=== PATIENT | male | born 1945 | race Caucasian/White ===

== ENCOUNTER → 2016-10-14 13:41 | Outpatient (CLI) | payer MEDICARE, BC ==
[2015-03-27 08:04] VITALS: BMI 28.4
[~2016-10-14 13:41] MED LIST: AMANTADINE100 M1 PO; AZILECT1 MG PO; BACTRIM DS TABL1 TAB PO; BAYER CHEWABLE81 MG PO; BCOMPLEX PO; CARBIDOPA-LEVO1 EAC2 PO; CELEBREX200 MG PO; CIPRO500 MG PO; CORDYCEPS PO; DEXILANT60 MG PO; LIVALO2 MG PO; MELATONIN 3 MG1 TAB PO; PROTONIX40 MG PO; TESTOSTERON200 MG/ML IM; UROXATRAL10 MG PO; VITAMIN D2000 UNIT PO; ZINC PICOLINATE PO
== END | disposition home or self-care (01) ==
LOC: D.RT 13:41
DX: R06.02 Shortness of breath (principal)

== ENCOUNTER 2017-10-31 17:17 | Emergency (ER) | payer MEDICARE, BC ==
[2015-03-27 08:04] VITALS: BMI 28.4
== END 2017-10-31 20:19 | disposition home or self-care (01) ==
LOC: D.ER 17:17
DX: S01.81XA Laceration without foreign body of other part of head, initial encounter (principal); W26.9XXA Contact with unspecified sharp object(s), initial encounter; Y93.89 Activity, other specified; Y92.019 Unspecified place in single-family (private) house as the place of occurrence of the external cause

== ENCOUNTER 2018-06-25 07:00 | Day surgery (SDC) | payer MEDICARE, BC ==
[2018-06-22 09:27] LABS: HEMATOCRIT 40.7 % (42.0-54.0); HEMOGLOBIN 13.8 g/dL (13.5-17.5); MCH 32.4 pg (26.0-34.0); MCHC 33.9 g/dL (31.0-37.0); MCV 95.5 fL (80.0-100.0); MEAN PLATELET VOLUME 9.7 fL (7.4-10.4); RBC 4.26 10x6/uL (4.20-6.10); RDW 14.6 % (11.5-14.5)
[~2018-06-25] VITALS: Ht 185.4 cm; Wt 86.2 kg
--- NOTE | ~2018-06-25 | OP ---
PATIENT NAME: JUAN CHOUDHURY MEDICAL RECORD: [id number] :49 LOCATION:D.OPS ADMISSION DATE: SURGEON: AGUSTÍN SMITH MD DATE OF OPERATION: 06/25/2018 PREOPERATIVE DIAGNOSIS: Right triceps tendon rupture, chronic. POSTOPERATIVE DIAGNOSIS: Right triceps tendon rupture, chronic. PROCEDURE: Repair of right triceps tendon rupture. SURGEON: Agustín Smith MD TERMINAL OPERATIONS MANAGER: Nikhil Davidson APN INTRAOPERATIVE COMPLICATIONS: None. SUMMARY OF PATHOLOGIC FINDINGS: The patient did have a triceps tendon rupture; however, it was very amenable to reapproximation and had not retracted substantially. OPERATIVE SUMMARY IN DETAIL: After obtaining the appropriate preoperative orthopedic surgery consent as well as anesthetic consultation, the patient was brought to the operating room, placed on the operating table in supine position. After general laryngeal mask airway was administered, tourniquet was placed on the proximal aspect of the right upper extremity. Right upper extremity was then prepped and draped in routine sterile fashion. The arm was elevated and exsanguinated, tourniquet inflated to 250 mmHg. Routine mid linear incision was taken down and careful dissection was carried down to the triceps itself. It was identified, good healing tissue was noted; however, it had not reapproximated back to the olecranon fossa. For this reason, it was identified in its entirety. The triceps insertion was then taken with a small sagittal saw back to bleeding bone. At this point, using 29 PushLocks and suture tape, a double-row construct was created out of these Arthrex suture anchors. This resulted in excellent reapproximation of the triceps back to the olecranon around the tip. Having completed this, the wound was then copiously irrigated, closed in layered form with final closure using 4-0 Prolene. Sterile dressings were applied. The tourniquet was deflated. The patient was awakened, taken to the recovery in stable condition. All final needle and sponge counts were correct. TRANSINT:[id number] Voice Confirmation ID: [id number] DOCUMENT ID: [id number] OPERATIVE REPORT [id number] CHOUDHURYJUAN Simon MD, AGUSTÍN PENNINGTON CC: [id number] DICTATION DATE: 06/28/18 152 GOVERNOR ASSEMBLER HYDRAULIC: 06/28/182242 [facility] 06/25/18 [place] [address] [place] [address]
[~2018-06-25 07:00] MED LIST changes: +BACTRIM DS1 TAB PO; +CALCIUM 600 +1 EAC3 PO; +MIRAPEX1.5 MG PO; +OMEGA-3100 MG PO; +PROSCAR5 MG PO; +RAPAFLO8 MG PO; +[UNRECOGNIZED DRUG - OTHER] PO
[2018-06-25 07:49] VITALS: BP 140/77; Ht 185.4 cm; Wt 86.2 kg
[2018-06-25] MEDS ORDERED: NORCO 10-325 TA1 TAB PO (10:01)
== END 2018-06-25 12:09 | disposition home or self-care (01) ==
LOC: D.OPS 07:00 → D.PAN 09:00 → D.OPS 09:15 → D.PAN 09:30 → D.OPS 09:30
PROVIDERS: Anesthesiology
DX: S46.311A Strain of muscle, fascia and tendon of triceps, right arm, initial encounter (principal); X58.XXXA Exposure to other specified factors, initial encounter; Z01.812 Encounter for preprocedural laboratory examination

== ENCOUNTER 2019-09-21 15:03 | Emergency (ER) | payer MEDICARE, BC ==
[~2019-09-21] VITALS: Ht 185.4 cm; Wt 94.5 kg
[~2019-09-21 15:03] MED LIST changes: +NORCO 10-325 TA1 TAB PO
[2019-09-21 15:08] VITALS: Ht 185.4 cm; Wt 94.5 kg
[2019-09-21 15:58] LABS: BASOPHILS 0.6 % (0-2); EOSINOPHILS 2.9 % (0-7); HEMATOCRIT 42.1 % (42.0-54.0); HEMOGLOBIN 13.7 g/dL (13.5-17.5); IMMATURE GRANULOCYTES 0.4 % (0-5); LYMPHOCYTES 16.7 % (15-50); MCH 32.6 pg (26.0-34.0); MCHC 32.5 g/dL (31.0-37.0); MCV 100.2 fL (80.0-100.0); MEAN PLATELET VOLUME 9.4 fL (7.4-10.4); MONOCYTES 8.2 % (2-11); NEUTROPHILS 71.2 % (40-80); PLATELET COUNT 182 10x3/uL (130-400); RDW 14.6 % (11.5-14.5); WBC 4.9 10x3/uL (4.8-10.8)
[2019-09-21 16:09] LABS: APTT 25.6 SECONDS (22.8-39.4); CALC OSMOLALITY 292 mosm/kg (275-300); CALCIUM 8.9 mg/dL (8.5-10.1); CARBON DIOXIDE 25.5 mmol/L (21.0-32.0); CHLORIDE - SERUM 106 mmol/L (98-107); CREATININE - SERUM 1.6 mg/dL (0.6-1.3); GLUCOSE 107 mg/dL (74-106); INR 1.01 (0.85-1.17); PROTIME 13.3 SECONDS (11.6-15.0); SODIUM 144 mmol/L (136-145); UREA NITROGEN 29 mg/dL (7-18); eGFR NON AFRICAN AMERICAN 45 mL/min (90-120)
[2019-09-21 16:24] LABS: ALBUMIN 3.8 g/dL (3.4-5.0); ALKALINE PHOSPHATASE 73 U/L (30-120); ALT (SGPT) 13 U/L (10-68); CKMB 7.6 U/L (0.0-3.6); CREATINE KINASE 228 UL (21-232); MAGNESIUM - SERUM 2.4 mg/dL (1.8-2.4)
[2019-09-21 16:26] LABS: TROPONIN-I < 0.017 ng/mL (0.000-0.060)
[2019-09-21 17:31] VITALS: BP 128/60
== END 2019-09-21 17:32 | disposition home or self-care (01) ==
LOC: D.ER 15:03
PROVIDERS: Emergency Medicine
DX: R06.02 Shortness of breath (principal); R07.9 Chest pain, unspecified; R06.00 Dyspnea, unspecified; Z95.5 Presence of coronary angioplasty implant and graft

== ENCOUNTER 2019-10-06 13:59 | Emergency (ER) | payer MEDICARE, BC ==
[~2019-10-06] VITALS: Ht 185.4 cm; Wt 91.4 kg
[2019-10-06 14:02] VITALS: BP 178/77; Ht 185.4 cm; Wt 91.4 kg
== END 2019-10-06 15:41 | disposition home or self-care (01) ==
LOC: D.ER 13:59
DX: S69.92XA Unspecified injury of left wrist, hand and finger(s), initial encounter (principal); W19.XXXA Unspecified fall, initial encounter; Y93.9 Activity, unspecified; Y92.9 Unspecified place or not applicable; G20 Parkinson's disease; K21.9 Gastro-esophageal reflux disease without esophagitis

== ENCOUNTER → 2019-10-11 09:18 | Outpatient (CLI) | payer MEDICARE, BC ==
[2019-10-06 14:02] VITALS: BMI 26.5
== END | disposition home or self-care (01) ==
LOC: D.RT 10-07 13:00
PROVIDERS: ATTEND Family Medicine
DX: R06.09 Other forms of dyspnea (principal)

== ENCOUNTER → 2019-11-06 09:34 | Outpatient (CLI) | payer MEDICARE, BC ==
[2019-10-06 14:02] VITALS: BMI 26.5
== END | disposition home or self-care (01) ==
LOC: D.HCCECHO 09:30
PROVIDERS: ATTEND Internal Medicine Cardiovascular Disease
DX: I25.10 Atherosclerotic heart disease of native coronary artery without angina pectoris (principal)

== ENCOUNTER 2019-12-08 17:29 | Emergency (ER) | payer MEDICARE, BC ==
[2019-12-08 17:43] VITALS: Ht 185.4 cm
[2019-12-08] MEDS ORDERED: KEFLEX500 MG PO (19:39)
[2019-12-08 20:05] VITALS: BP 132/78
== END 2019-12-08 20:05 | disposition home or self-care (01) ==
LOC: D.ER 17:29
DX: S01.21XA Laceration without foreign body of nose, initial encounter (principal); S02.2XXA Fracture of nasal bones, initial encounter for closed fracture; S22.32XA Fracture of one rib, left side, initial encounter for closed fracture; W01.198A Fall on same level from slipping, tripping and stumbling with subsequent striking against other object, initial encounter; Y93.9 Activity, unspecified; Y92.9 Unspecified place or not applicable; G20 Parkinson's disease; K21.9 Gastro-esophageal reflux disease without esophagitis

== ENCOUNTER 2019-12-17 06:39 | Outpatient (CLI) | payer MEDICARE, BC ==
[~2019-12-17] VITALS: Ht 185.4 cm; Wt 90.0 kg
--- NOTE | ~2019-12-17 | HEMODYNAMI ---
PATIENT:JUAN CHOUDHURY MEDICAL RECORD: [id number] : 49 LOCATION:DDarrelCAT ADMISSION DATE: 12/17/19 Generatedon:12/17/20199:04 Patient name: JUAN CHOUDHURY Patient #: [id number] SSN: D OB: 1945 Date of study: 12/17/2019 Page: Of Hemodynamic Procedure Report Patient Data Patient Demographics Procedure consent was obtained First Name: JUAN Gender: Male Last Name: KEI : 1945 Middle Initial: E Age: 74 year(s) Patient #: [id number] Race: Ethnicity: or Additional ID: [id number] Contact details [address]: [address] [place] [address] State: [place] City: [place] Zip code: [address] Past Medical History Allergies Allergen Reaction Date Comments Reported Other allergy 12/17/2019 REGLAN, DEXTROMETHORPHAN Admission Admission Data Admission Date: 12/17/2019 Admission Time: 6:39 Arrival Date: 12/17/2019 Arrival Time: 0:00 Height (in.): 73 BSA: 2.14 (m2) Height (cm.): 185.42 BMI: 26.18 (kg/m2) Weight (lbs.): 198.42 Weight (kg.): 90 Lab Results Lab Result Date: 12/17/2019 Lab Result Time: 0:00 Biochemistry Name Units Result Min Max BUN mg/dl 26 --(----)-* 7 18 Creatinine mg/dl 1.5 --(----)-* 0.6 1.3 eGFR ml/min 49 *-(----)-- 90 120 NONAFRICAN CBC Name Units Result Min Max Hematocrit % 42.5 --(*---)-- 42 54 Hemoglobin g/dl 13.5 --(*---)-- 13.5 17.5 Procedure Procedure Types Cath Procedure Diagnostic Procedure LHC LHC w/Coronaries Sedation Charges Moderate Sedation up to 15 minutes Procedure Description Procedure Date Procedure Date: 12/17/2019 Procedure Start Time: 8:51 Procedure End Time: 9:01 Procedure Staff Name Function Armen Nguyen MD Performing Physician Jeri Brandt RT Monitor Bella Hewitt RT Scrub Taurus Lerma RN Nurse Procedure Data Cath Procedure Fluoroscopy Diagnostic fluoroscopy Total fluoroscopy Time: 1.4 time: 1.4 min min Diagnostic fluoroscopy Total fluoroscopy dose: 414 dose: 414 mGy mGy Contrast Material Contrast Material Type Amount (ml) Isovue 300 62 Entry Location Entry Primary Successful Side Size Upsize Upsize Entry Closure Sood ccessful Closure Location (Fr) 1 (Fr) 2 (Fr) Remarks Device Remarks Radial Right 6 Fr Mechanical artery Short Compression Estimated blood loss: 5 ml Diagnostic catheters Device Type Used For End Catheter Placement DIAGNOSTIC Terry 110cm Procedure 5Fr catheter ([id number]) Procedure Complications No complications Procedure Medications Medication Administration Route Dosage Oxygen etCO2 Nasal cannula 2 l/min Lidocaine 2% added to field 20 Heparin Flush Bag added to field 2 bags (1000units/500ml NS) 0.9% NaCl I.V. 100 ml/hr Versed I.V. 1 mg Fentanyl I.V. 50 mcg Radial Cocktail I.A. 1 syringe (Verapamil 2mg/Nitro 400mcg/Heparin 1500units) Versed I.V. 1 mg Fentanyl I.V. 50 mcg Hemodynamics Rest BSA: 2.14 (m2) HGB: 13.5 (g/dl) O2 Consumption: Estimated: 246.4 (ml/min) O2 Con sumption indexed: Estimated:115.14 (ml/min/m) Heart Rate: 69 (bpm) Pressure Samples Time Site Value (mmHg) Purpose Heart Use Rate(bpm) 8:54 LV 93/-1,11 Snapshot 67 8:55 LV 91/33,42 Snapshot 66 8:55 AO 79/44(56) Pullback 66 8:55 LV 96/-6,18 Pullback 66 Gradients Valve Time Site 1 Site 2 Mean SEP/DFP Peak To Heart Use (mmHg) (sec/min) Peak Rate (mmHg) (bpm) Aortic 8:55 LV AO 4 13 17 66 96/-6,18 79/44(56) Calculations Valve P-P Mean Valve Index Valve Source Name Gradient Area Flow (cm2) Aortic 17 4 17 4 Snapshots Pre Cath Intra NCS Post Cath Vital Signs Time Heart Resp SPO2 etCO2 NIBP (mmHg) Rhythm Pain Sedation Rate (ipm) (%) (mmHg) Status Level (bpm) 8:39:03 69 22 95 0 136/75(110) NSR 0 (11) 10(A) , No pain 8:43:13 69 19 97 31.3 129/75(96) NSR 0 (11) 10(A) , No pain 8:47:23 68 15 94 0 128/72(100) NSR 0 (11) 9(A) , No pain 8:51:31 67 17 93 23.8 114/77(96) NSR 0 (11) 9(A) , No pain 8:55:41 66 14 94 24.6 86/53(76) NSR 0 (11) 9(A) , No pain 9:00:30 66 13 94 20.9 110/65(88) NSR 0 (11) 10(A) , No pain Medications Time Medication Route Dose Verified Delivered Reason Notes Effectiveness by by 8:40:24 Oxygen etCO2 2 l/min Amren Buffie used for Nasal Patrick Lerma RN procedure cannula 8:40:30 Lidocaine 2% added 20ml Armen Armen for local to vial Patrick Nguyen MD anesthetic field 8:40:35 Heparin Flush added 2 bags Armen Armen used for Bag to Patrick Nguyen MD procedure (1000units/500ml field NS) 8:40:43 0.9% NaCl I.V. 100 Armen Buffie Per ml/hr Patrick Lerma RN physician 8:44:17 Versed I.V. 1 mg Armen Buffie for sedation Patrick Lerma RN 8:44:41 Fentanyl I.V. 50 mcg Armen Buffie for sedation Patrick Lerma RN 8:54:00 Radial Cocktail I.A. 1 Armen Armen for (Verapamil syringe Patrick Nguyen MD vasodilation 2mg/Nitro 400mcg/Heparin 1500units) 8:54:07 Versed I.V. 1 mg Armen Armen for sedation Patrick Nguyen MD 8:54:10 Fentanyl I.V. 50 mcg Armen Armen for sedation Patrick Nguyen MD Procedure Log Time Note 7:57:46 Informed consent obtained and on chart 7:57:50 Diagnostic Cath Status : Elective 7:58:06 Procedure Status Elective Heart Cath (OP). 7:58:09 Taurus Lerma RN sent for patient. Start room use. 7:58:10 Time tracking: Regular hours (M-F 7:00 - 5:00) 7:58:14 Plan of Care:Hemodynamics will remain stable., Cardiac rhythm will remain stable., Comfort level will be maintained., Respiratory function will remain adequate., Patient/ family verbilizes understanding of procedure., Procedure tolerated without complication., Recovers from procedure without complications.. 8:13:00 H&P Date Dictated: 11/26/2019 Within 30 days and on chart., H&P Addendum completed by physician on day of procedure. (MUST COMPLETE FOR ALL OUTPATIENTS). 8:13:18 Patient allergic to Other allergyREGLAN, DEXTROMETHORPHAN 8:17:26 Lab Result : BUN 26 mg/dl 8:17:26 Lab Result : Creatinine 1.5 mg/dl 8:17:26 Lab Result : eGFR NONAFRICAN 49 ml/min 8:17:26 Lab Result : Hemoglobin 13.5 g/dl 8:17:26 Lab Result : Hematocrit 42.5 % 8:17:34 Patient Weight : 198.42 lbs 8:17:36 Patient Height : 73 inches 8:17:45 Arrival Date: 12/17/2019 12:00:00 AM 8:19:56 Stress Test: yes; abnormal INFERIOR AND APICAL 8:31:15 Patient received from Pre/Post Procedure Room to CCL 2 Alert and oriented. Tansferred to table in Supine position. 8:31:16 Warm blankets applied, and abel hugger turned on for patient comfort. 8:31:16 Correct patient and procedure confirmed by team. 8:31:17 ECG and BP/O2 sat monitors applied to patient. 8:37:50 Vital chart was started 8:37:52 Baseline sample Acquired. 8:37:56 Rhythm: sinus rhythm 8:37:57 Full Disclosure recording started 8:37:58 Pre-procedure instructions explained to patient. 8:37:58 Pre-op teaching completed and patient verbalized understanding. 8:38:00 Family in patients room. 8:38:01 Patient NPO since Midnight. 8:38:04 Is the patient allergic to Iodine/contrast media? No. 8:38:05 Is patient on blood thinner?No 8:38:06 Patient diabetic? No. 8:38:09 Previous problem with sedation/anesthesia? No ? 8:38:09 Snore? Yes 8:38:10 Sleep apnea? No 8:38:11 Deviated septum? No 8:38:14 Opens mouth fully? Yes 8:38:15 Sticks out tongue? No 8:38:17 Airway obstruction? Yes COPD 8:38:20 Dentures? No ? 8:38:23 Pre procedure: right dorsailis pedis pulse 1+ Palpable, but thready & weak; easily obliterated 8:38:25 Patient pain scale 0/10 ?. 8:38:29 IV patent on arrival in left hand with 0.9% NaCl at [facility]. 8:38:32 Lab results completed and on chart. 8:38:36 Right Radial & Right Groin area was prepped with chlora-prep and draped in sterile fashion 8:38:37 Alarms reviewed by R. N. 8:38:37 Sharps counted by scrub and verified by R.N. 8:38:40 Use device set Radial Dx or PCI 8:38:40 ACIST Syringe (73045) opened to sterile field. 8:38:42 Bag Decanter (2002S) opened to sterile field. 8:38:42 ACIST Hand Control (99223) opened to sterile field. 8:38:43 ACIST Manifold (08953) opened to sterile field. 8:38:43 Tegaderm 4 x 4 (1626W) opened to sterile field. 8:38:44 Medline Cath Pack ([id number]) opened to sterile field. 8:38:44 MBrace Wrist Support ([id number]) opened to sterile field. 8:38:45 NEEDLE Cook 21G 4cm Radial (O26832) opened to sterile field. 8:38:46 EMERALD Guide Wire (989-813) opened to sterile field. 8:38:46 SHEATH 6FR RAIN (4731502) opened to sterile field. 8:40:24 Oxygen 2 l/min etCO2 Nasal cannula was administered by Taurus Lerma RN; used for procedure; Verbal order read back and verified. 8:40:30 Lidocaine 2% 20ml vial added to field was administered by Armen Nguyen MD; for local anesthetic; Verbal order read back and verified. 8:40:35 Heparin Flush Bag (1000units/500ml NS) 2 bags added to field was administered by Armen Nguyen MD; used for procedure; Verbal order read back and verified. 8:40:43 0.9% NaCl 100 ml/hr I.V. was administered by Taurus Lerma RN; Per physician; Verbal order read back and verified. 8:44:07 --------ALL STOP TIME OUT------ 8:44:08 Final Timeout: patient, procedure, and site verified with staff and physician. All members of the team are in agreement. 8:44:09 Right Radial & Right Groin site verified by team. 8:44:12 Fire Safety Assessment: A--An alcohol-based skin anteseptic being used preoperatively., C--Open oxygen or nitrous oxide is being used., D--An ESU, laser, or fiber-optic light is being used. 8:44:15 Physical assessment completed. ASA score P 2 - A patient with mild systemic disease as per Armen Nguyen MD. 8:44:17 Versed 1 mg I.V. was administered by Taurus Lerma RN; for sedation; Verbal order read back and verified. 8:44:19 3a) 45-59 Moderately reduced kidney function. 8:44:23 Maximum allowable contrast dose (3.7 X eGFR X 0.75)136 ml. 8:44:26 Sedation plan: IV Moderate Sedation Medication:Versed, Fentanyl 8:44:41 Fentanyl 50 mcg I.V. was administered by Taurus Lerma RN; for sedation; Verbal order read back and verified. 8:50:05 Procedure started. 8:50:07 Zero performed for pressure channel P1 8:51:02 Local anesthetic to right radial artery with Lidocaine 2% by Armen Nguyen MD.INITIAL ACCESS ONLY 8:52:53 A 6 Fr Short sheath was inserted into the Right Radial artery 8:53:09 A DIAGNOSTIC Terry 110cm 5Fr catheter ([id number]) was advanced over the wire and used for Procedure. 8:54:00 Radial Cocktail (Verapamil 2mg/Nitro 400mcg/Heparin 1500units) 1 syringe I.A. was administered by Armen Nguyen MD; for vasodilation; Verbal order read back and verified. 8:54:07 Versed 1 mg I.V. was administered by Armen Nguyen MD; for sedation; Verbal order read back and verified. 8:54:10 Fentanyl 50 mcg I.V. was administered by Armen Nguyen MD; for sedation; Verbal order read back and verified. 8:54:32 LV gram done using RUIZ 8:54:35 Injector settings: Ml/sec: 5, Volume: 15, 8:54:43 LV hemodynamics recorded. 8:55:16 EF : 50 % 8:56:25 RCA angiography performed. 8:57:18 LCA angiography performed. 8:57:35 ACCDominant side:Co-Dominant 8:58:18 Catheter removed. 8:58:43 ZEPHYR REGULAR TR BAND (959136) opened to sterile field. 8:58:51 Procedure ended.(Physican Out) 8:59:04 Sheath removed intact; hemostasis achieved with Mechanical Compression to the Right Radial artery. 8:59:08 Fluoroscopy time 01.40 minutes. 8:59:13 Fluoroscopy dose: 414 mGy 8:59:13 Flurop Dose total: 414 8:59:18 Dose Area Product 09402 mGy/cm. 8:59:22 Contrast amount:Isovue 300 62ml. 8:59:51 Maximum allowable dose exceeded? No. 8:59:52 Sharps counted by scrub and verified by R.N. 8:59:54 [place] band inflated with 10cc of air. 8:59:56 Insertion/operative site no bleeding no hematoma. 8:59:58 Post-procedure physical assessment completed. ASA score P 2 - A patient with mild systemic disease as per Armen Nguyen MD. 9:00:00 Post procedure rhythm: sinus rhythm 9:00:02 Estimated blood loss: 5 ml 9:00:03 Post procedure instruction explained to patient.Patient verbalizes understanding. 9:00:04 Patient needs reinforcement of post procedure teaching. 9:00:35 Procedure type changed to Cath procedure, Diagnostic procedure, LHC, C w/Coronaries, Sedation Charges, Moderate Sedation up to 15 minutes 9:00:52 Procedure and supply charges have been captured, reviewed, submitted and are correct. 9:00:54 Procedure Complication : No complications 9:01:22 Vital chart was stopped 9:01:23 [facility] Findings: mild to moderate CAD (<70%) 9:01:25 Operative report dictated upon procedure completion. 9:01:26 See physician's report for complete and final results. 9:01:29 Report given to Pre/Post Procedure Room. 9:01:31 Patient transfered to Pre/Post Procedure Room with Bed. 9:01:35 Procedure ended. 9:01:35 Full Disclosure recording stopped 9:01:42 End room use (Document Last) 9:03:08 End room use (Document Last) 9:03:34 End room use (Document Last) Device Usage Item Name Manufacture Quantity Catalog Hospital Part Current Minima l Lot# / Number Charge Number Stock Stock Serial# Code ACIST Acist 1 [id number] [id number] 856552 [id number] 20 Syringe Medical (49504) Systems Inc Bag Microtek 1 2001S 420066 09541 955578 5 Decanter Medical Inc. () ACIST Hand Acist 1 76279 041107 460805 806692 5 Control Medical (54106) Systems Inc ACIST Acist 1 79126 566177 562371 353275 5 Manifold Medical (85684) Systems Inc Tegaderm 4 3M 1 1626W 880410 651017 845660 5 x 4 (1626W) Medline Medline 1 [id number] 170326 28725 227970 5 Cath Pack ([id number]) MBrace Advanced 1 140-0250-00 171222 75070 627949 5 Wrist Vascular Support Dynamics ([id number]) NEEDLE Cook Cook Medical 1 D28853 559598 758587 124610 5 21G 4cm Radial (B51685) EMERALD Cardinal 1 502-455 434199 091507 784844 5 Guide Wire Health (502455) SHEATH 6FR Cardinal 1 2739045 255039 2048754 892594 5 [facility] Health (0008333) DIAGNOSTIC Terumo 1 40-4365 027905 713291 975662 5 Terry 110cm 5Fr catheter (581371) ZEPHYR Cardinal 1 894230 621756 5205522 527964 5 REGULAR TR Health BAND (863230) Signature Audit [place] Stage Time Signature Unsigned Intra-Procedure 12/17/2019 Jeri Brandt 9:03:08 AM RT(R) Intra-Procedure 12/17/2019 Taurus Lerma RN 9:03:34 AM Intra-Procedure 12/17/2019 Armen Nguyen MD 9:04:17 AM Signatures Performing Physician : Signature : Armen Nguyen MD Date : Time : Monitor : Jeri Brandt Signature : RT Date : Time : Nurse : Buffie Lerma RN Signature : Date : Time : [place] [address] [place] [address]
[~2019-12-17 06:39] MED LIST changes: +KEFLEX500 MG PO
[2019-12-17 07:47] VITALS: BP 114/93; Ht 185.4 cm; Wt 90.0 kg
[2019-12-17 07:48] LABS: BASOPHILS 1.2 % (0-2); EOSINOPHILS 4.7 % (0-7); HEMATOCRIT 42.5 % (42.0-54.0); HEMOGLOBIN 13.5 g/dL (13.5-17.5); IMMATURE GRANULOCYTES 0.2 % (0-5); LYMPHOCYTES 19.6 % (15-50); MCH 31.4 pg (26.0-34.0); MCHC 31.8 g/dL (31.0-37.0); MCV 98.8 fL (80.0-100.0); MEAN PLATELET VOLUME 9.5 fL (7.4-10.4); MONOCYTES 9.9 % (2-11); NEUTROPHILS 64.4 % (40-80); RDW 13.9 % (11.5-14.5); WBC 4.2 10x3/uL (4.8-10.8)
[2019-12-17 07:52] LABS: PLATELET COUNT 230 10x3/uL (130-400)
[2019-12-17 08:13] LABS: ANION GAP 12.3 mmol/L (8-16); CALCIUM 8.5 mg/dL (8.5-10.1); CARBON DIOXIDE 25.7 mmol/L (21.0-32.0); CHOL - HDL RATIO 3.5 ratio (2.3-4.9); CREATININE - SERUM 1.5 mg/dL (0.6-1.3); LDL-HDL RATIO 2.4 ratio (1.5-3.5)
--- NOTE | 2019-12-17 09:10 | NUR ---
PT RECEIVED VIA STRETCHER FROM SILVICULTURE PROFESSOR FOR RECOVERY. PT VERY DROWSY, BUT VERBALLY AROUSABLE. PT DENIES PAIN OR DISCOMFORT AT THIS TIME. IV PATENT INFUSING VIA L ARM PER ORDERS. PT PLACED ON CARDIAC MONITORS AND O2 VIA NC AT 2L. HR NSR RATE 65, BP 117/64, RR 11, SAT 99. ZYPHER BAND AND IMMOBILIZER TO R WRIST/ARM. DRESSING CDI NO S/S HEMATOMA OR BLEEDING NOTED. ARM PINK AND WARM, CAP REFILL BRISK. PT INSTRUCTED NOT TO USE ARM, HE VERBALIZED UNDERSTANDING. CALL LIGHT IN REACH, AT BEDSIDE.
--- NOTE | 2019-12-17 09:30 | NUR ---
PT RESTING W/O COMPLAINTS. ZBAND AND IMMOBILIZER IN PLACE TO R WRIST/ARM. NO BLEEDING OR S/S HEMATOMA NOTED. CAP REFILL BRISK. PT DENIES PAIN OR NAUSEA, SPRITE GIVEN. VSS. CALL LIGHT IN REACH, REMAINS AT BS.
--- NOTE | 2019-12-17 10:15 | NUR ---
ZBAND AND IMMOBILIZER REMAIN IN PLACE. CAP REFILL BRISK, NO S/S HEMATOMA OR BLEEDING NOTED. VSS. PT TOLERATING PO FLUIDS, SANDWICH TRAY SERVED. CALL LIGHT IN REACH. PT DENIES PAIN OR OTHER NEEDS AT THIS TIME, REMAINS AT BS.
--- NOTE | 2019-12-17 10:35 | NUR ---
5CC AIR REMOVED FROM Z BAND, NO BLEEDING OR S/S HEMATOMA NOTED. PT SITTING UP IN BED WATCHING TV, DENIES PAIN OR NEEDS. TOLERATED PO FLUIDS AND SANDWICH. CALL LIGHT IN REACH. HR 69, BP 117/58, RR 22, SAT 96 ON ROOM AIR AFTER O2 REMOVED.
--- NOTE | 2019-12-17 11:10 | NUR ---
3 ADD'L CC AIR REMOVED FROM Z BAND, NO BLEEDING OR S/S HEMATOMA NOTED. VSS. CALL LIGHT IN REACH
--- NOTE | 2019-12-17 11:20 | NUR ---
DISCHARGE INSTRUCTIONS REVIEWED W PT, HE VERBALIZED UNDERSTANDING. IV REMOVED W CATH INTACT, MONITORS REMOVED AND PT UP TO DRESS W ASSIST FROM . 1125 PT AMBULATED TO BR, VOIDING W/O DIFFICULITY 1135 ZBAND REMOVED, 2X2 AND TEGADERM DRESSING APPLIED. PT DISCHARGED VIA WC TO IN PRIVATE VEHICLE. PT HAD ALL BELONGINGS AND DISCHARGE PAPERWORK.
== END 2019-12-17 11:35 | disposition home or self-care (01) ==
LOC: D.CATH 06:39
PROVIDERS: ATTEND Internal Medicine Cardiovascular Disease
DX: I25.119 Atherosclerotic heart disease of native coronary artery with unspecified angina pectoris (principal); I10 Essential (primary) hypertension; K21.9 Gastro-esophageal reflux disease without esophagitis

== ENCOUNTER 2020-09-17 21:47 | Emergency (ER) | payer MEDICARE, BC ==
[~2020-09-17] VITALS: Ht 185.4 cm; Wt 81.8 kg
[2020-09-17 21:57] VITALS: Ht 185.4 cm; Wt 81.8 kg
[2020-09-17] MEDS ORDERED: CEPHALEXIN500 M1 PO (23:42)
[2020-09-18 00:01] VITALS: BP 118/74
== END 2020-09-18 00:01 | disposition home or self-care (01) ==
LOC: D.ER 21:47
DX: S01.01XA Laceration without foreign body of scalp, initial encounter (principal); S09.90XA Unspecified injury of head, initial encounter; W19.XXXA Unspecified fall, initial encounter; Y93.9 Activity, unspecified; Y92.9 Unspecified place or not applicable; G20 Parkinson's disease; J44.9 Chronic obstructive pulmonary disease, unspecified

== ENCOUNTER 2020-10-04 14:27 | Emergency (ER) | payer MEDICARE, BC ==
[~2020-10-04] VITALS: Ht 185.4 cm; Wt 72.7 kg
[~2020-10-04 14:27] MED LIST changes: +CEPHALEXIN500 M1 PO
[2020-10-04 14:29] VITALS: BP 107/61; Ht 185.4 cm; Wt 72.7 kg
[2020-10-04] MEDS ORDERED: CYCLOBENZAPRINE10 MG PO (15:03)
[2020-10-04] MEDS ORDERED: ACETAMINOPHEN500 M1 PO (15:03)
[2020-10-04] MEDS ORDERED: MEDROL DOSE PACK4 MG PO (15:03)
== END 2020-10-04 15:27 | disposition home or self-care (01) ==
LOC: D.ER 14:27
DX: M79.10 Myalgia, unspecified site (principal); S39.012A Strain of muscle, fascia and tendon of lower back, initial encounter; J44.9 Chronic obstructive pulmonary disease, unspecified; G20 Parkinson's disease

== ENCOUNTER 2020-10-18 14:08 | Inpatient (IN) | payer MEDICARE, BC ==
[~2020-10-18] VITALS: Ht 185.4 cm; Wt 81.6 kg
[~2020-10-18 14:08] MED LIST changes: +ACETAMINOPHEN500 M1 PO; +BACTRIM DS TAB1 EAC1 PO; -BACTRIM DS1 TAB PO; +CYCLOBENZAPRINE10 MG PO; +MEDROL DOSE PACK4 MG PO
[2020-10-18 14:57] VITALS: BP 145/51; BMI 23.8
[2020-10-18 15:27] LABS: CALC OSMOLALITY 279 mosm/kg (275-300); CALCIUM 8.1 mg/dL (8.5-10.1); CARBON DIOXIDE 26.6 mmol/L (21.0-32.0); CHLORIDE - SERUM 106 mmol/L (98-107); GLUCOSE 102 mg/dL (74-106); POTASSIUM - SERUM 3.5 mmol/L (3.5-5.1); SODIUM 139 mmol/L (136-145); UREA NITROGEN 18 mg/dL (7-18); eGFR NON AFRICAN AMERICAN 78 mL/min (90-120)
[2020-10-18] MEDS ORDERED: AZELASTINE137 MCG/0. NASAL (16:30)
[2020-10-18] MEDS ORDERED: STALEVO 200 TAB1 TAB PO (16:33)
[2020-10-18] MEDS ORDERED: SINEMET 25-1001 EAC1 PO ×2 (16:34→16:35)
[2020-10-18] MEDS ORDERED: FISH OIL 1,0001 CA1 PO (16:36)
[2020-10-18] MEDS ORDERED: LIVALO2 MG PO (16:37)
[2020-10-18] MEDS ORDERED: AZILECT1 MG PO (16:38)
--- NOTE | 2020-10-18 16:39 | NUR ---
ADMIT TO REHAB FROM [facility]. DROVE PT HERE. HE IS CHUNG X4. VERY WEAK TO BUE AND IS UNABLE TO BEAR WT TO BLE. MAX ASST X2 STAFF TO TRANSFER FROM TO BED. 7CM LONG INCISION TO HIS BACK NOTED. SUTURES IN PLACE. INCISION IS OPEN TO AIR. RT HIP HAS 6CM INCISION TO LATERAL AREA. GLUE IN PLACE OVER INCISION. 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 HE HAS RUE PICC LINE, SINGLE LUMEN. NO SKIN BREAKDOWN TO HEELS. HIS IS INCONT OF BOWEL AND BLADDER MOST OF TIME. RED AREA TO BUTTOCKS THAT STILL BLANCHES AND IS NOT OPEN. ENCOURAGED HIM TO ROTATE OFTEN TO SIDES. WITH HIM.
--- NOTE | 2020-10-18 18:47 | NUR ---
BEDSIDE REPORT COMPLETE. RECEIVED PT LYING IN BED, ALERT AND ORIENTED X4. DENIES ANY NEEDS OR PAIN. RIGHT UPPER ARM PICC INFUSING AMPICILLIN 200ML/HR NO REDNESS OR SWELLING NOTED. DRESSING INTACT. CALL LIGHT AND WATER WITHIN REACH. FALL PRECAUTIONS IN PLACE. CPOC
--- NOTE | 2020-10-19 02:27 | NUR ---
PT LYING IN BED EYES CLOSED RESTING. RR EVEN AND UNLABORED. INCONTINENCY CARE PROVIDED. VOID ONLY. DENIES ANY PAIN. NO DISTRESS NOTED. CALL LIGHT WITHIN REACH.
--- NOTE | 2020-10-19 05:42 | NUR ---
INCONTINENCY CARE PROVIDED. VOID ONLY. NO OTHER NEEDS VOICED. CALL LIGHT WITHIN REACH.
[2020-10-19 07:14] LABS: BASOPHILS 1.1 % (0-2); EOSINOPHILS 2.8 % (0-7); HEMATOCRIT 26.3 % (42.0-54.0); HEMOGLOBIN 8.4 g/dL (13.5-17.5); IMMATURE GRANULOCYTES 0.5 % (0-5); LYMPHOCYTE ABS# 0.85 10x3/uL (1.32-3.57); LYMPHOCYTES 13.8 % (15-50); MCH 30.2 pg (26.0-34.0); MCHC 31.9 g/dL (31.0-37.0); MCV 94.6 fL (80.0-100.0); MEAN PLATELET VOLUME 8.8 fL (7.4-10.4); MONOCYTES 7.3 % (2-11); NEUTROPHIL ABS# 4.58 10x3/uL (1.78-5.38); NEUTROPHILS 74.5 % (40-80); RBC 2.78 10x6/uL (4.20-6.10); WBC 6.2 10x3/uL (4.8-10.8)
[2020-10-19 07:24] LABS: INR 1.23 (0.85-1.17); PROTIME 14.4 SECONDS (11.6-15.0)
[2020-10-19 07:25] LABS: PLATELET COUNT 369 10x3/uL (130-400)
[2020-10-19 08:00] VITALS: BP 107/61
--- NOTE | 2020-10-19 10:06 | NUR ---
PATIENT ADMITTED TO [facility] FROM [facility]. DR. AGUSTÍN SALAZAR IS PATIENT PCP. AT THIS TIME IT IS NOT DETERMINED TO WHERE PATIENT WILL DISCHARGE TO. WILL CONTINUE TO FOLLOW WITH PATIENT.
[2020-10-19 12:52] VITALS: Ht 185.4 cm; Wt 81.6 kg
--- NOTE | 2020-10-19 12:54 | NUR ---
SITTING UP IN WC IN ROOM. JUST FINISHED LUNCH WITH WHO CAME TO VISIT. GROSS WEAKNESS NOTED TO ALL EXTREMITIES. IS STILL NOT ABLE TO BEAR WT ON BLE TO TRANSFER. NEEDS MAX ASST WITH ALL TASKS.
[2020-10-19 20:00] VITALS: BP 115/70
--- NOTE | 2020-10-20 04:29 | NUR ---
PT IS RESTING WITH EYES CLOSED. RESPIRATIONS EVEN AND UNLABORED. HIS BED IS LOW, BED ALARM ON AND CALL LIGHT IS WITHIN REACH.
[2020-10-20 07:04] LABS: BASOPHILS 1.7 % (0-2); EOSINOPHILS 3.6 % (0-7); HEMATOCRIT 26.9 % (42.0-54.0); HEMOGLOBIN 8.5 g/dL (13.5-17.5); IMMATURE GRANULOCYTES 0.8 % (0-5); LYMPHOCYTE ABS# 0.83 10x3/uL (1.32-3.57); LYMPHOCYTES 17.6 % (15-50); MCHC 31.6 g/dL (31.0-37.0); MCV 95.1 fL (80.0-100.0); MEAN PLATELET VOLUME 8.9 fL (7.4-10.4); MONOCYTES 7.4 % (2-11); NEUTROPHIL ABS# 3.24 10x3/uL (1.78-5.38); NEUTROPHILS 68.9 % (40-80); PLATELET COUNT 346 10x3/uL (130-400); RBC 2.83 10x6/uL (4.20-6.10); RDW 15.8 % (11.5-14.5); WBC 4.7 10x3/uL (4.8-10.8)
[2020-10-20 08:00] VITALS: BP 99/58
--- NOTE | 2020-10-20 08:00 | NUR ---
SHIFT ASSMT COMPLETED,
--- NOTE | 2020-10-20 08:55 | RHP ---
PATIENT: JUAN CHOUDHURY MEDICAL RECORD: [id number] ACCOUNT: [id number] LOCATION:[facility] : 49 ADMISSION DATE: 10/18/20 REHABILITATION HISTORY AND PHYSICAL EXAMINATION POST ADMISSION PHYSICIAN EXAMINATION ADMITTING DIAGNOSIS: Decompression diskectomy. HISTORY OF PRESENT ILLNESS: The patient is a 75-year-old gentleman who presented secondary to a collection of fluid at T11 through L3. He had a laminectomy performed by Dr. Ortiz. He has got a history of Parkinson's, which he takes Sinemet for. He lives at home with his up until about 3 weeks ago. He was completely independent, driving and without assistive device. He states that he has been enjoying playing softball until the age 69. He has been pretty active. He has had a history of 2 prior lumbar surgeries, unsure of the exact procedure. The patient underwent an L3 through L5 PSIF and LLIF with evidence of infection and Gram-positive cocci. Infectious disease was consulted. He was started on vancomycin, cefepime and Flagyl postoperatively. He was seen on 10/15/2020, drain has been removed. He has been diagnosed with a discitis and osteomyelitis of lumbar spine. His labs have been followed. He will be discharged home on IV antibiotics for 8 weeks with a course of ampicillin and also possibly a vancomycin. The patient has worked with PT on 10/16/2020. He is motivated to get up and work and get around. He is mod to max assist with mobility. He is max assist with pivot at this time. He has reported he has been sitting up in his regular chair for about 45 minutes. Barriers to his discharge home include the need for further strengthening, gait, balance and transfer training. He will need close MD and nursing care oversight to follow him. He has also got a PICC line and IV antibiotics. Hopefully, we are going to discharge him at his prior level of functioning. COMORBIDITIES: In this patient include COPD, Parkinson's and CAD. PAST MEDICAL HISTORY: Significant for coronary artery disease, COPD. He has had a REM behavior disorder. PAST SURGICAL HISTORY: Includes back surgery, elbow surgery, eye surgery, knee surgery, neck surgery, nose surgery, retinal detachment. ALLERGIES: DEXTROMETHORPHAN AND REGLAN. CURRENT MEDICATIONS: Include Floranex one cap daily, he is on pitavastatin 2 mg daily, he is on Rapaflo 8 mg daily, vitamin B two tabs daily, Celebrex 200 mg b.i.d., calcium carbonate 500 mg daily, finasteride 5 mg daily, vitamin D 2000 units daily, Astelin nasal spray daily, polyethylene glycol 17 grams in 8 ounces of water daily, he is on amantadine daily, Protonix 40 mg daily, he is on Sinemet tab 2.5 mg at 6 and 9, he is on Bactrim 1 tab b.i.d., Azilect 1 mg at bedtime, omega-3 one cap b.i.d., melatonin 3 mg at bedtime, Sinemet 1 tab at bedtime, ampicillin, he is on also Sinemet two tabs at 1200, 1500 and 1800 hours, Mirapex 1.5 mg at dinner and Tylenol p.r.n. HABITS: No alcohol or tobacco use. FAMILY HISTORY: Noncontributory. SOCIAL HISTORY: The patient hopes to return back home and get back to his prior HISTORY AND PHYSICAL [id number] JUAN CHOUDHURY level of functioning. REVIEW OF SYSTEMS: GENERAL: He does complain of weakness and fatigue. HEENT: Denies cold, cough or congestion. CARDIOVASCULAR: Denies any chest. PHYSICAL EXAMINATION: VITAL SIGNS: Stable, afebrile. GENERAL: Elderly gentleman in no distress upon exam. HEENT: Normocephalic and atraumatic. Mucosa moist. NECK: Supple without no adenopathy. LUNGS: Clear at this time. No wheezing or rales. HEART: Regular rate and rhythm. No murmurs, rubs or gallops. ABDOMEN: Soft, benign, nondistended. Positive bowel sounds times 4. EXTREMITIES: No clubbing, cyanosis or edema. Postoperative area looks pretty good. LABORATORY DATA: His labs show a white count of 6.2, H&H of 8.4 and 26.3 and platelet count is noted to be 369. His sodium is 139, potassium 3.5, BUN and creatinine of 18 and 1.0 and blood sugar is noted to be 102. ASSESSMENT: This is a 75-year-old gentleman admitted to the rehab with a working diagnosis of status post diskectomy. The patient has potential to make improvement. We instituted the following multidisciplinary therapies including, not limited to physical, occupational, respiratory, speech, nutritional services, prosthetics and orthotics. Given his complex medical condition and risks for more complications, rehabilitation services cannot be provided at a low level of care such as longterm facility. PLAN: 1. Admit to [facility] for inpatient therapy to include the following disciplines; A. Physical therapy to improve gait, all transfer skills and bed mobility to a modified independent level. B. Occupational therapy to improve activities of daily living. C. Case management to help with discharge planning and placement options. D. Nutrition to assist with nutritional needs. E. Rehabilitation nursing to assist in monitoring the patient's underlying medical condition and to assist with any type of bowel or bladder management. 2. The patient's current medication and Medicare will be continued. 3. Placed on standard fall precautions. 4. The patient's estimated length of stay is approximately 7-10 days. 5. Discuss this patient during care team staff meeting this week. TRANSINT:[id number] Voice Confirmation ID: [id number] DOCUMENT ID: [id number] JEZ notes whether there has been none or any medical/functional change since admission: - No change since preadmission screen. JEZ attests patient continues to be appropriate for IRF: - Continues to be appropriate. HISTORY AND PHYSICAL [id number] JUAN CHOUDHURY,ADAMS BOB MD at 0855 CC: [id number] DICTATION DATE: 10/19/20 1056 RIG SUPERINTENDENT: 10/19/20 1316 ADM IN [facility] [address] [id number]
--- NOTE | 2020-10-20 12:00 | NUR ---
EATING LUNCH,SITTING UP IN WC. AT BEDSIDE.
--- NOTE | 2020-10-20 20:07 | NUR ---
PT IN BED WATCHING TV, NO IMMEDIATE NEEDS NOTED, FLUIDS/CL,BED CONTROLS WITHIN REACH, Q-4 HR AMPICILLIN RUNNING STARTED AT 6PM NEXT DOSE DUE AT 10PM
--- NOTE | 2020-10-20 22:30 | NUR ---
PT DID NOT HAVE 50/200 CARBIDOPA WHICH WAS DUE AT 2100, WATER TREATMENT PLANT OPERATOR WAS NOTIFIED AND CHANGED THE ORDER TO 2 25/100 CARBIDOPAS, PT NOTICED THIS AND COMPLAINED STATING THE ORIGINAL ORDER WAS TIME RELEASED AND HE NEEDED IT THE WAY HIS DR ORDERED IT, DR DONALDSON WAS CALLED, HE STATED THE CHANGED ORDER WAS NOT INTERCHANGEABLE THE WAY HE WAS READING IT, HIS WAS CALLED AND SHE BROUGHT [employer] FOR HIM, PHARMACY WAS CLOSED, THIS ORDER NEEDS TO BE CLARIFIED AND CHANGED BACK TO ORIGINAL
[2020-10-21 05:35] LABS: BASOPHILS 1.1 % (0-2); EOSINOPHILS 3.3 % (0-7); HEMATOCRIT 25.6 % (42.0-54.0); IMMATURE GRANULOCYTES 0.7 % (0-5); LYMPHOCYTES 15.6 % (15-50); MCH 29.6 pg (26.0-34.0); MCHC 31.3 g/dL (31.0-37.0); MCV 94.8 fL (80.0-100.0); MEAN PLATELET VOLUME 8.6 fL (7.4-10.4); MONOCYTES 8.4 % (2-11); NEUTROPHIL ABS# 3.19 10x3/uL (1.78-5.38); NEUTROPHILS 70.9 % (40-80); PLATELET COUNT 323 10x3/uL (130-400); RDW 15.9 % (11.5-14.5); WBC 4.5 10x3/uL (4.8-10.8)
[2020-10-21 05:52] LABS: CALC OSMOLALITY 276 mosm/kg (275-300); CALCIUM 7.7 mg/dL (8.5-10.1); CARBON DIOXIDE 24.7 mmol/L (21.0-32.0); CHLORIDE - SERUM 106 mmol/L (98-107); CREATININE - SERUM 0.9 mg/dL (0.6-1.3); GLUCOSE 95 mg/dL (74-106); POTASSIUM - SERUM 3.6 mmol/L (3.5-5.1); SODIUM 138 mmol/L (136-145); UREA NITROGEN 16 mg/dL (7-18); eGFR NON AFRICAN AMERICAN 88 mL/min (90-120)
--- NOTE | 2020-10-21 08:00 | NUR ---
SHIFT ASSMT COMPLETED.CL IN REACH.
--- NOTE | 2020-10-21 12:00 | NUR ---
IN BED EATING LUNCH.KELLY OOB SINCE THIS AM.ATTEMPTED GETTING BACK IN BED BY HIMSELF'SAT ON FLOOR.ASSISTED X3 INTO BED.CL GIVEN.
--- NOTE | 2020-10-21 13:14 | NUR ---
Nutrition Follow-up Diet: Regular + Vanilla Ensure TID/with meals PO intake: 75-100% x 3 meals yesterday Last BM: 10/20/20 Wt: 180# (10/19/20) Meds noted: probiotics, miralax, MVI, abx Labs reviewed Recommend continue current diet and oral nutrition supplement. RD will follow-up within 7 days.
--- NOTE | 2020-10-21 15:31 | NUR ---
CARE TEAM MEETING: PATIENT SPOUSE ATTENDED THE MEETING. HER QUESTIONS AND CONCERNS WERE ADDRESSED. TENATIVE DISCHARGE DATE IS 11/02/20. WILL CONTINUE TO FOLLOW WITH PATIENT.
--- NOTE | 2020-10-21 18:45 | NUR ---
BEDSIDE REPORT COMPLETE. RECEIVED PT LYING IN BED ON RIGHT SIDE AWAKE. ALERT AND ORIENTED X4. DENIES ANY NEEDS OR PAIN. NO DISTRESS NOTED. RIGHT UPPER ARM PICC DRESSING AND SWAB CAP INTACT. LOWER BACK INCISION WITH DRESSING INTACT. DATED 10/21/20. BUTTOCKS RED WITH CALMOSEPTINE IN USE. CALL LIGHT WITHIN REACH. FALL PRECAUTIONS IN PLACE. CPOC
[2020-10-21 20:45] VITALS: BP 104/62
--- NOTE | 2020-10-22 | NUR ---
INCONTINENCE CARE PROVIDED. URINE INCONTINENCY. CALMOSEPTINE APPLIED TO BUTTOCKS. NO OTHER NEEDS VOICED. CALL LIGHT WITHIN REACH.
--- NOTE | 2020-10-22 02:11 | NUR ---
PT LYING IN BED ON LEFT SIDE EYES CLOSED RESTING. AMPICILLIN 2G ADMININSTERED PER ORDER. PT CLEAN AND DRY. NO NEEDS VOICED. NO DISTRESS NOTED. CALL LIGHT WITHIN REACH.
--- NOTE | 2020-10-22 04:04 | NUR ---
pt lying in bed on left side eyes closed resting. rr even and unlabored. no acute changes in condition this shift. call light within reach
--- NOTE | 2020-10-22 04:37 | NUR ---
INCONTINENT CARE PROVIDED. URINE INCONTINENCY. CALMOSEPTINE APPLIED TO BUTTOCKS. POSITIONED TO RIGHT SIDE. NO OTHER NEEDS VOICED. CALL LIGHT WITHIN REACH. CPOC
--- NOTE | 2020-10-22 06:06 | NUR ---
PT LYING IN BED AWAKE. ASSISTED WITH URINAL, 250ML YELLOW URINE VOIDED. DENIES ANY OTHER NEEDS OR PAIN. NO DISTRESS NOTED. CALL LIGHT WITHIN REACH
[2020-10-22 08:00] VITALS: BP 102/53
--- NOTE | 2020-10-22 12:13 | NUR ---
SITTING UP IN BED EATING LUNCH. IN ROOM WITH HIM HELPING ASST WITH TASKS. HE HAS HAD INCREASED HEAD NODING THIS MORNING. MEDS GIVEN ORDERED. MAX ASST TO TRANSFER. LIMITED ROM TO CHAVA.
--- NOTE | 2020-10-22 18:50 | NUR ---
BEDSIDE REPORT COMPLETE. PT LYING IN BED ALERT AND ORIENTED X4. DENIES ANY NEEDS OR PAIN. NO DISTRESS NOTED. RIGHT UPPER ARM PICC WITHOUT S/S INFECTION. AMPICILLIN INFUSING 100ML/HR. CALL LIGHT AND WATER WITHIN REACH. FALL PRECAUTIONS IN PLACE. CPOC
[2020-10-22 19:35] VITALS: BP 133/64
--- NOTE | 2020-10-23 00:37 | NUR ---
pt lying in bed on right side eyes closed resting. rr even and unlabored. call light within reach
--- NOTE | 2020-10-23 01:45 | NUR ---
INCONTINENCE CARE PROVIDED. URINE INCONTINENCY ONLY. NO OTHER NEEDS VOICED. CALL LIGHT WITHIN REACH. CPOC
--- NOTE | 2020-10-23 04:00 | NUR ---
INCONTINENT CARE PROVIDED, MODERATE URINE INCONTINENCY. DENIES ANY OTHER NEEDS OR PAIN. NO DISTRESS NOTED. CALL LIGHT WITHIN REACH. CPOC
--- NOTE | 2020-10-23 05:52 | NUR ---
PT LYING IN BED EYES CLOSED RESTING. EASILY AROUSED WITH STIMULI. ASSISTED WITH URINAL, 250ML YELLOW VOID. DENIES ANY OTHER NEEDS. NO DISTRESS NOTED. NO ACUTE CHANGES IN CONDITION THIS SHIFT. CALL LIGHT AND WATER WITHIN REACH.
[2020-10-23 06:18] LABS: GLUCOSE 92 mg/dL (74-106); UREA NITROGEN 15 mg/dL (7-18); eGFR NON AFRICAN AMERICAN 78 mL/min (90-120)
[2020-10-23 06:40] LABS: CALC OSMOLALITY 272 mosm/kg (275-300); CHLORIDE - SERUM 102 mmol/L (98-107); POTASSIUM - SERUM 3.7 mmol/L (3.5-5.1); SODIUM 136 mmol/L (136-145)
[2020-10-23 06:49] LABS: EOSINOPHILS 4.6 % (0-7); HEMATOCRIT 25.3 % (42.0-54.0); HEMOGLOBIN 7.9 g/dL (13.5-17.5); IMMATURE GRANULOCYTES 0.2 % (0-5); LYMPHOCYTE ABS# 0.69 10x3/uL (1.32-3.57); LYMPHOCYTES 16.7 % (15-50); MCH 29.8 pg (26.0-34.0); MCHC 31.2 g/dL (31.0-37.0); MCV 95.5 fL (80.0-100.0); MONOCYTES 8.2 % (2-11); NEUTROPHIL ABS# 2.86 10x3/uL (1.78-5.38); NEUTROPHILS 69.3 % (40-80); PLATELET COUNT 358 10x3/uL (130-400); RBC 2.65 10x6/uL (4.20-6.10); RDW 15.5 % (11.5-14.5); WBC 4.1 10x3/uL (4.8-10.8)
--- NOTE | 2020-10-23 08:18 | NUR ---
DRESSED AND SITTING UP IN WC IN ROOM FOR BREAKFAST. DENIES NEEDS. CALL LIGHTIN REACH
--- NOTE | 2020-10-23 20:12 | NUR ---
AWAKE AND ALERT. RESTING IN BED WITH RESPIRATIONS UNLABORED. RIGHT PICC LINE INTACT. ASSITED WITH USE OF BEDPAN. NO ACUTE DISTRESS NOTED.
[2020-10-23 21:33] VITALS: BP 117/54
--- NOTE | 2020-10-24 05:33 | NUR ---
QUIET HOURS. NO ACUTE CHANGES IN CONDITION THIS SHIFT. RESTING IN BED WITH NO DISTRESS NOTED. PICC LINE INTACT. CALL LIGHT IN REACH.
--- NOTE | 2020-10-24 08:00 | NUR ---
SHIFT ASSMT COMPLETED.CL IN REACH
[2020-10-24 08:53] VITALS: BP 97/55
[2020-10-24 19:00] VITALS: BP 127/52
--- NOTE | 2020-10-24 19:36 | NUR ---
AWAKE AND ALERT. RESTING IN BED WITH RESPIRATIONS UNLABORED. NO DISTRESS NOTED. CALL LIGHT IN REACH.
--- NOTE | 2020-10-25 05:04 | NUR ---
QUIET HOURS. NO ACUTE CHANGES IN CONDITION THIS SHIFT. RESTING IN BED WITH NO DISTRESS NOTED.
--- NOTE | 2020-10-25 08:00 | NUR ---
SHIFT ASSMT COMPLETED.
[2020-10-25 08:07] VITALS: BP 106/59
--- NOTE | 2020-10-25 12:00 | NUR ---
SITTING UP IN CHAIR STRENGTH IMPROVING.
--- NOTE | 2020-10-25 16:00 | NUR ---
UP OOB TO VISIT WITH .
--- NOTE | 2020-10-25 18:00 | NUR ---
PUT BACK TO BED.POS ON SIDE.HEELS FLOATED.
[2020-10-25 19:00] VITALS: BP 124/62
--- NOTE | 2020-10-25 19:15 | NUR ---
AWAKE AND ALERT. RESTING IN BED WITH RESPIRATIONS UNLABORED. PICC LINE INTACT TO RIGHT UPPER ARM. NO ACUTE DISTRESS NOTED. CALL LIGHT IN REACH.
--- NOTE | 2020-10-26 04:50 | NUR ---
QUIET HOURS. NO ACUTE CHANGES IN CONDITION THIS SHIFT, RESTING IN BED WITH NO DISTRESS NOTED.
[2020-10-26 06:58] LABS: BASOPHILS 2.3 % (0-2); EOSINOPHILS 7.6 % (0-7); HEMATOCRIT 29.4 % (42.0-54.0); IMMATURE GRANULOCYTES 0.3 % (0-5); LYMPHOCYTE ABS# 0.71 10x3/uL (1.32-3.57); LYMPHOCYTES 23.5 % (15-50); MCHC 30.6 g/dL (31.0-37.0); MEAN PLATELET VOLUME 9.2 fL (7.4-10.4); MONOCYTES 7.6 % (2-11); NEUTROPHIL ABS# 1.77 10x3/uL (1.78-5.38); NEUTROPHILS 58.7 % (40-80); PLATELET COUNT 328 10x3/uL (130-400); RDW 15.9 % (11.5-14.5)
[2020-10-26 07:11] LABS: CALC OSMOLALITY 279 mosm/kg (275-300); CALCIUM 8.6 mg/dL (8.5-10.1); CARBON DIOXIDE 22.1 mmol/L (21.0-32.0); CHLORIDE - SERUM 105 mmol/L (98-107); GLUCOSE 78 mg/dL (74-106); POTASSIUM - SERUM 4.2 mmol/L (3.5-5.1); SODIUM 140 mmol/L (136-145); UREA NITROGEN 19 mg/dL (7-18); eGFR NON AFRICAN AMERICAN 78 mL/min (90-120)
[2020-10-26 08:00] VITALS: BP 99/54
--- NOTE | 2020-10-26 13:54 | NUR ---
Nutrition Re-Assessment Chart reviewed. GSx consulted 2/2 possible ileus vs. SBO, gastrografin to determine if SBO is present. Patient currently tolerating regular diet without +N/V. Diet: Regular + Ensure TID PO intake: ~82% average x last 6 meals Last BM: 10/24/20 Wt: 180# (10/26/20) Meds noted: probiotics, miralax, MVI, abx, sinemet Labs reviewed. Estimated nutrition needs remain unchanged from initial nutrition assessment at this time. Nutrition diagnosis: Altered GI function r/t possible ileus vs SBO AEB MD notes. Patient is progressing towards meeting nutrition goals at this time. Recommendations/Interventions: -Recommend continue regular diet as medically feasible. -Will continue to honor food preferences. -RD will continue to monitor PO diet, PO intake, and wt trend. -RD will follow-up within 7 days.
[2020-10-26 19:33] VITALS: BP 108/55
--- NOTE | 2020-10-26 19:37 | NUR ---
BEDSIDE REPORT COMPLETE. RECEIVED PT LYING IN BED AWAKE. ALERT AND ORIENTED X4 DENIES ANY NEEDS OR PAIN. NO DISTRESS NOTED. RIGHT UPPER ARM PICC PATENT. NO SIGNS OF INFECTION. DRESSING AND SWAB CAP INTACT. MID FOREHEAD SUTURED LACERATION FROM FALL TODAY. LUMBAR INCISION WITH SUTURES INTACT. NO SIGNS OF INFECTION NOTED. CALL LIGHT AND WATER WITHIN REACH. FALL PRECAUTIONS IN PLACE. CPOC
--- NOTE | 2020-10-27 02:05 | NUR ---
PT LYING IN BED ON LEFT SIDE EYES CLOSED RESTING. RR EVEN AND UNLABORED. CALL LIGHT WITHIN REACH
--- NOTE | 2020-10-27 05:27 | NUR ---
PT LYING IN BED EYES CLOSED RESTING. NO DISTRESS NOTED. NO ACUTE CHANGES IN CONDITION THIS SHIFT. CALL LIGHT WITHIN REACH. FALL PRECAUTIONS IN PLACE. CPOC
[2020-10-27 08:01] VITALS: BP 122/83
--- NOTE | 2020-10-27 18:58 | NUR ---
BEDSIDE REPORT COMPLETE. RECEIVED PT SITTING UP IN W/C VISITING WITH . DENIES ANY PAIN OR NEEDS. RIGHT PICC WITHOUT S/S OF INFECTION. DRESSING AND SWAB CAP INTACT. LUMBAR INCISION WITHOUT REDNESS, SWELLING NOTED. NO DRAINAGE NOTED. CALL LIGHT AND WATER WITHIN REACH. FALL PRECAUTIONS IN PLACE. CPOC
[2020-10-27 20:08] VITALS: BP 139/76
--- NOTE | 2020-10-28 01:36 | NUR ---
PT LYING IN BED EYES CLOSED RESTING. NO DISTRESS NOTED. RR EVEN AND UNLABORED. CALL LIGHT WITHIN REACH
--- NOTE | 2020-10-28 05:20 | NUR ---
BEDBATH PROVIDED D/T XLARGE LOOSE BOWEL INCONTINENCY. ASSISTED PT IN DRESSING. PT SITTING UP IN BED DRINKING COFFEE AND SHAVING. NO OTHER NEEDS VOICED. CALL LIGHT WITHIN REACH. FALL PRECAUTIONS IN PLACE.
[2020-10-28 07:05] LABS: ANION GAP 12.3 mmol/L (8-16); CALCIUM 8.3 mg/dL (8.5-10.1); CARBON DIOXIDE 25.5 mmol/L (21.0-32.0); CREATININE - SERUM 1.2 mg/dL (0.6-1.3); POTASSIUM - SERUM 3.8 mmol/L (3.5-5.1)
[2020-10-28 07:18] LABS: BASOPHILS 1.8 % (0-2); EOSINOPHILS 9.5 % (0-7); HEMATOCRIT 28.5 % (42.0-54.0); HEMOGLOBIN 8.7 g/dL (13.5-17.5); LYMPHOCYTE ABS# 0.85 10x3/uL (1.32-3.57); LYMPHOCYTES 25.9 % (15-50); MCH 29.5 pg (26.0-34.0); MCHC 30.5 g/dL (31.0-37.0); MCV 96.6 fL (80.0-100.0); MEAN PLATELET VOLUME 9.5 fL (7.4-10.4); MONOCYTES 8.8 % (2-11); NEUTROPHIL ABS# 1.77 10x3/uL (1.78-5.38); PLATELET COUNT 317 10x3/uL (130-400); RBC 2.95 10x6/uL (4.20-6.10); RDW 15.8 % (11.5-14.5); WBC 3.3 10x3/uL (4.8-10.8)
[2020-10-28 07:58] VITALS: BP 94/52
--- NOTE | 2020-10-28 07:58 | NUR ---
SHIFT ASSMT COMPLETED
--- NOTE | 2020-10-28 14:32 | NUR ---
NUTRITION FOLLOW UP: COMMENTS: Patient continues eating well for last 6 meals. DIET: Regular diet SUPPLEMENT: Vanilla Ensure with Meals PO INTAKE: 81% avg for last 6 meals WEIGHT: 180 lbs on 10/26 BM: x1 on 10/28 SIG MEDS: SINEMET, Miralax, MVI/Iron/Zinc, Vit D, Oscal, Protonix, Fish Oil SIG LABS: Ca-8.3(L) RECOMMENDATIONS: Continue Regular diet as tolerated Continue Vanilla Ensure with meals No PO intake 1 hr before and 1 hr after Sinemet (protein decreases medication effectiveness)
--- NOTE | 2020-10-28 19:32 | NUR ---
AWAKE AND ALERT. RESTING IN BED WITH RESPIRATIONS UNLABORED. NO DISTRESS NOTED. RIGHT ARM PICC LINE INTACT. CALL LIGHT IN REACH.
[2020-10-28 19:51] VITALS: BP 110/63
--- NOTE | 2020-10-29 05:39 | NUR ---
QUIET HOURS. NO ACUTE CHANGES IN CONDITION THIS SHIFT. RESTING IN BED WITH NO DISTRESS NOTED.
--- NOTE | 2020-10-29 08:00 | NUR ---
SHIFT ASSMT COMPLETED.UP OOB FOR BREAKFAST.HAD A MOMENT THAT HE WAS IN A STARE AND DID NOT RESPONDE.CALLED FOR OTHER NURSE.LASTED APPROX <10SECS AND THEN STARTED MOVING ABOUT,SAID HE FELT FAINT;PLACED BACK IN BED.VS CHECKED AND NOT MUCH CHANGE NOTED.BP 142/79,PULSE 81 SAT ON RA 96%.POS UP IN BED AND BREAKFAST GIVEN.
[2020-10-29 08:27] VITALS: BP 135/72
--- NOTE | 2020-10-29 12:00 | NUR ---
KELLY LUNCH. AT BEDSIDE.
--- NOTE | 2020-10-29 19:37 | NUR ---
AWAKE AND ALERT. RESTING IN BED WITH RESPIRATIONS UNLABORED. RIGHT ARM PICC LINE INTACT. NO DISTRESS NOTED. CALL LIGHT IN REACH.
[2020-10-29 20:19] VITALS: BP 130/61
--- NOTE | 2020-10-30 04:52 | NUR ---
QUIET HOURS. NO ACUTE CHANGES IN CONDITION THIS SHIFT. RESTING IN BED WITH NO DISTRESS NOTED.
[2020-10-30 05:57] LABS: EOSINOPHILS 10.7 % (0-7); HEMOGLOBIN 8.4 g/dL (13.5-17.5); LYMPHOCYTE ABS# 0.91 10x3/uL (1.32-3.57); LYMPHOCYTES 30.3 % (15-50); MCHC 31.1 g/dL (31.0-37.0); MCV 96.4 fL (80.0-100.0); MEAN PLATELET VOLUME 9.2 fL (7.4-10.4); MONOCYTES 7.3 % (2-11); NEUTROPHIL ABS# 1.49 10x3/uL (1.78-5.38); NEUTROPHILS 49.7 % (40-80); PLATELET COUNT 333 10x3/uL (130-400); RDW 15.7 % (11.5-14.5)
[2020-10-30 06:24] LABS: ANION GAP 10.2 mmol/L (8-16); CALCIUM 8.3 mg/dL (8.5-10.1); CARBON DIOXIDE 26.7 mmol/L (21.0-32.0); CREATININE - SERUM 1.1 mg/dL (0.6-1.3); POTASSIUM - SERUM 3.9 mmol/L (3.5-5.1)
--- NOTE | 2020-10-30 10:36 | NUR ---
PATIENT DISCHARGING HOME WITH SPOUSE. [facility] WILL PROVIDE THERAPY AT HOME. [facility] WILL PROVIDE IV MEDICATION AND SUPPLIES, [facility] WILL DELIVER DME TO PATIENTS HOME. OFFICE WILL CALL PATIENT WITH AN APPOINTMENT. DR. VARELA 12/08/20 @ 3:15, DR. REYES NURSE VISIT 11/02/20 @ 11:30, TELEMED VISIT WITH PHYSICIAN 11/16/20 @ 1:15. COLLINS SIGNED, IMM SERVED AND EXPLAINED, ONE GIVEN TO PATIENT AND ONE FILED IN CHART. DISCHARGE INSTRUCTIONS FAXED TO PCP, HOME HEALTH AND REVIEWED WITH PATIENT SPOUSE.
[2020-10-30 11:03] VITALS: BP 127/73
--- NOTE | 2020-10-30 12:07 | NUR ---
THIS NURSE WENT TO GIVE PT HIS SINEMET NOON DOSE AND HIS WHO WAS IN THE ROOM AND STATED SHE HAD ALREADY GIVEN HIM HIS NOON DOSE......
--- NOTE | 2020-10-30 12:45 | NUR ---
SITTING UP IN WC IN ROOM WAITING ON [email or web address] TO BRING IV SUPPLIES. DENIES NEEDS. IN ROOM WITH PT. CALL LIGHT IN REACH
--- NOTE | 2020-10-30 13:45 | NUR ---
DC HOME WITH . [facility] WILL MEET PT AND AT THEIR HOUSE TO GO OVER EVERYTHING. HE WAS VERY UNSTEADY AND TOOK MAX ASST TO GET HIM IN THE CAR. SHE DENIES NEEDING ANY MEDS CALLED IN TO PHARMACY OTHER THAN [facility].
== END 2020-10-30 14:39 | disposition home or self-care (01) | DRG 552 ==
LOC: D.REHAB 14:08
PROVIDERS: ADMIT Emergency Medicine; ATTEND Emergency Medicine
DX: M46.45 Discitis, unspecified, thoracolumbar region (principal); H33.22 Serous retinal detachment, left eye; Z48.89 Encounter for other specified surgical aftercare; G20 Parkinson's disease; I25.10 Atherosclerotic heart disease of native coronary artery without angina pectoris; J44.9 Chronic obstructive pulmonary disease, unspecified; K21.9 Gastro-esophageal reflux disease without esophagitis; M16.10 Unilateral primary osteoarthritis, unspecified hip; H33.311 Horseshoe tear of retina without detachment, right eye

== ENCOUNTER 2020-10-26 13:42 | Emergency (ER) | payer MEDICARE, BC ==
[~2020-10-26 13:42] MED LIST changes: +AZELASTINE137 MCG/0. NASAL; +FISH OIL 1,0001 CA1 PO; +SINEMET 25-1001 EAC1 PO; +STALEVO 200 TAB1 TAB PO
== END 2020-10-26 14:48 | disposition other institution (70) ==
LOC: D.ER 13:42
DX: S01.81XA Laceration without foreign body of other part of head, initial encounter (principal); W19.XXXA Unspecified fall, initial encounter; J44.9 Chronic obstructive pulmonary disease, unspecified; M54.9 Dorsalgia, unspecified; Z95.5 Presence of coronary angioplasty implant and graft

== ENCOUNTER 2020-10-31 20:31 | Emergency (ER) | payer MEDICARE, BC ==
[~2020-10-31] VITALS: Ht 185.4 cm; Wt 81.8 kg
[2020-10-31 20:43] VITALS: Ht 185.4 cm; Wt 81.8 kg
[2020-10-31 23:05] VITALS: BP 104/61
== END 2020-10-31 23:05 | disposition home or self-care (01) ==
LOC: D.ER 20:31
DX: M86.9 Osteomyelitis, unspecified (principal); T82.898A Other specified complication of vascular prosthetic devices, implants and grafts, initial encounter; J44.9 Chronic obstructive pulmonary disease, unspecified; G20 Parkinson's disease

== ENCOUNTER 2020-11-01 01:30 | Emergency (ER) | payer MEDICARE, BC ==
[~2020-11-01] VITALS: Ht 185.4 cm; Wt 81.8 kg
[2020-11-01 01:36] VITALS: Ht 185.4 cm; Wt 81.8 kg
[2020-11-01 06:38] VITALS: BP 139/68
== END 2020-11-01 07:24 | disposition home or self-care (01) ==
LOC: D.ER 01:30
DX: S01.81XA Laceration without foreign body of other part of head, initial encounter (principal); S09.90XA Unspecified injury of head, initial encounter; I62.9 Nontraumatic intracranial hemorrhage, unspecified; G20 Parkinson's disease; J44.9 Chronic obstructive pulmonary disease, unspecified; W19.XXXA Unspecified fall, initial encounter; Y93.9 Activity, unspecified; Y92.9 Unspecified place or not applicable

== ENCOUNTER → 2020-11-02 18:37 | Outpatient (CLI) | payer MEDICARE, BC ==
[2020-11-01 01:36] VITALS: BMI 23.8
[2020-11-02 20:15] LABS: BASOPHILS 2.7 % (0-2); EOSINOPHILS 8.5 % (0-7); HEMATOCRIT 31.8 % (42.0-54.0); HEMOGLOBIN 9.6 g/dL (13.5-17.5); LYMPHOCYTE ABS# 1.02 10x3/uL (1.32-3.57); LYMPHOCYTES 27.9 % (15-50); MCH 30.2 pg (26.0-34.0); MCHC 30.2 g/dL (31.0-37.0); MEAN PLATELET VOLUME 9.5 fL (7.4-10.4); MONOCYTES 6.6 % (2-11); NEUTROPHIL ABS# 1.99 10x3/uL (1.78-5.38); NEUTROPHILS 54.3 % (40-80); PLATELET COUNT 389 10x3/uL (130-400); RBC 3.18 10x6/uL (4.20-6.10); RDW 15.9 % (11.5-14.5); WBC 3.7 10x3/uL (4.8-10.8)
[2020-11-02 20:25] LABS: ALBUMIN 3.1 g/dL (3.4-5.0); BILIRUBIN - DIRECT 0.15 mg/dL (0.00-0.30); BILIRUBIN - INDIRECT 0.27 mg/dL (0.00-1.00); BILIRUBIN - TOTAL 0.42 mg/dL (0.2-1.3); CREATININE - SERUM 1.4 mg/dL (0.6-1.3); PROTEIN - SERUM 7.2 g/dL (6.4-8.2)
== END | disposition home or self-care (01) ==
LOC: D.LABREF 18:37
PROVIDERS: ATTEND Emergency Medicine
DX: M86.9 Osteomyelitis, unspecified (principal)

== ENCOUNTER 2020-11-08 18:45 | Emergency (ER) | payer MEDICARE, BC ==
[~2020-11-08] VITALS: Ht 185.4 cm; Wt 81.8 kg
[2020-11-08 18:57] VITALS: Ht 185.4 cm; Wt 81.8 kg
[2020-11-08 22:58] VITALS: BP 108/70
[2020-11-09] MEDS ORDERED: MELATONIN 3 MG1 TAB PO (13:02)
[2020-11-09] MEDS ORDERED: LOW DOSE ASPIRI81 M1 PO (13:03)
[2020-11-09] MEDS ORDERED: OMEGA-3100 MG PO ×2 (13:04→13:05)
[2020-11-09] MEDS ORDERED: CALCIUM 600 +1 EAC3 PO (13:06)
[2020-11-09] MEDS ORDERED: MIRAPEX ER1.5 MG PO (13:11)
[2020-11-09] MEDS ORDERED: FLORINEF 0.1 M0.1 MG PO (13:13)
[2020-11-09] MEDS ORDERED: PENICILLIN G IVPB (13:43)
== END 2020-11-08 23:00 | disposition home or self-care (01) ==
LOC: D.ER 18:45
DX: T82.898A Other specified complication of vascular prosthetic devices, implants and grafts, initial encounter (principal); J44.9 Chronic obstructive pulmonary disease, unspecified

== ENCOUNTER 2020-11-09 09:31 | Inpatient (IN) | payer MEDICARE, BC ==
[~2020-11-09] VITALS: Ht 185.4 cm; Wt 63.5 kg
--- NOTE | 2020-11-09 09:40 | NUR ---
TRAUMA BAND #[id number]. RIGHT UPPER ARM PICC LINE WITH ELASTOMERE BALL INFUSING ANTIBIOTIC. DOREEN HAS HISTORY OF INFECTION PRIOR TO RECENT BACK SURGERY. MANAGED BY HOME HEALTH NURSE.
--- NOTE | 2020-11-09 10:15 | NUR ---
TO CT VIA STRETCHER.
[2020-11-09 10:26] LABS: BASOPHILS 2.1 % (0-2); HEMATOCRIT 29.2 % (42.0-54.0); HEMOGLOBIN 9.2 g/dL (13.5-17.5); LYMPHOCYTES 24.2 % (15-50); MCHC 31.5 g/dL (31.0-37.0); MCV 95.1 fL (80.0-100.0); MEAN PLATELET VOLUME 9.4 fL (7.4-10.4); MONOCYTES 9.7 % (2-11); NEUTROPHIL ABS# 1.92 10x3/uL (1.78-5.38); RBC 3.07 10x6/uL (4.20-6.10); RDW 15.3 % (11.5-14.5); WBC 3.3 10x3/uL (4.8-10.8)
[2020-11-09 10:30] LABS: PLATELET COUNT 268 10x3/uL (130-400)
[2020-11-09 10:31] LABS: APTT 32.2 SECONDS (22.8-39.4); INR 1.2 (0.85-1.17); PROTIME 14.1 SECONDS (11.6-15.0)
[2020-11-09 10:33] LABS: CALC OSMOLALITY 287 mosm/kg (275-300); CALCIUM 8.9 mg/dL (8.5-10.1); CARBON DIOXIDE 25.1 mmol/L (21.0-32.0); CHLORIDE - SERUM 106 mmol/L (98-107); CREATININE - SERUM 1.3 mg/dL (0.6-1.3); GLUCOSE 93 mg/dL (74-106); POTASSIUM - SERUM 3.6 mmol/L (3.5-5.1); SODIUM 143 mmol/L (136-145); UREA NITROGEN 21 mg/dL (7-18); eGFR NON AFRICAN AMERICAN 57 mL/min (90-120)
[2020-11-09 10:49] LABS: ALBUMIN 2.8 g/dL (3.4-5.0); ALKALINE PHOSPHATASE 148 U/L (30-120); ALT (SGPT) 14 U/L (10-68); BILIRUBIN - TOTAL 0.52 mg/dL (0.2-1.3); CKMB 6.9 U/L (0.0-3.6); CREATINE KINASE 850 UL (21-232); MAGNESIUM - SERUM 2.1 mg/dL (1.8-2.4); PROTEIN - SERUM 7.1 g/dL (6.4-8.2); TROPONIN-I < 0.017 ng/mL (0.000-0.060)
[2020-11-09] MEDS ORDERED: MELATONIN 3 MG1 TAB PO (13:02)
[2020-11-09] MEDS ORDERED: LOW DOSE ASPIRI81 M1 PO (13:03)
[2020-11-09] MEDS ORDERED: OMEGA-3100 MG PO ×2 (13:04→13:05)
[2020-11-09] MEDS ORDERED: CALCIUM 600 +1 EAC3 PO (13:06)
--- NOTE | 2020-11-09 13:10 | NUR ---
PATIENTS HOME PARKINSON'S MEDICATION GIVEN BY WITH APPROVAL OF SANDY SCHULZ. RIGHT SIDED HEAD WOUND CLEANSED WITH WOUND WASH, NEOSPORIN APPLIEDM COVERED BY NON-STICK PAD AND KERLIX WRAP.
[2020-11-09] MEDS ORDERED: MIRAPEX ER1.5 MG PO (13:11)
[2020-11-09 13:13] LABS: BILIRUBIN NEGATIVE (NEGATIVE); KETONE SMALL mg/dL (NEGATIVE); NITRITE NEGATIVE (NEGATIVE)
[2020-11-09] MEDS ORDERED: FLORINEF 0.1 M0.1 MG PO (13:13)
[2020-11-09] MEDS ORDERED: PENICILLIN G IVPB (13:43)
--- NOTE | 2020-11-09 16:25 | NUR ---
UP TO BSC WITH ASSIST X 2. PATIENT IS UNABLE TO BEAR ANY WEIGHT, KNEES BUCKLE AND INCREASED PARKINSON'S MOVEMENT. INCONTINENT IN ADULT DIAPER AND EXPELLED MODERATE AMOUNT INTO BSC. REQUIRED LIFTING BACK INTO BED. PERINEAL CARE PERFORMED. LINEN CHANGED AND GOWN ON.
--- NOTE | 2020-11-09 18:00 | NUR ---
NS AT 100ML/HR TO RIGHT PICC LINE.
--- NOTE | 2020-11-09 18:05 | NUR ---
REPORT TO SAHIL OH, MED/SURG.
[2020-11-10] VITALS: BP 98/55
--- NOTE | 2020-11-10 03:09 | NUR ---
190) REC'D.FROM ER VIA STRETCHER.CHGE OF SHIFT SITTING POSITION.ON ENTERING ROOM STATES I'VE BEEN IN ER SINCE 0900 HADN'T HAD ANYTHING TO EAT ALL DAMN DAY HAS NOT BROUGHT ME A FUCKIN THING STILL. TURKEY SANDWICH CHICKIN SOUP JELLOW DIET YAZAN. .
[2020-11-10 04:00] VITALS: BP 101/58
[2020-11-10 05:06] VITALS: BMI 18.5
[2020-11-10 05:50] LABS: BASOPHILS 2.1 % (0-2); EOSINOPHILS 4.8 % (0-7); HEMATOCRIT 30.2 % (42.0-54.0); HEMOGLOBIN 9.2 g/dL (13.5-17.5); LYMPHOCYTE ABS# 0.94 10x3/uL (1.32-3.57); LYMPHOCYTES 28.3 % (15-50); MCH 29.1 pg (26.0-34.0); MCHC 30.5 g/dL (31.0-37.0); MCV 95.6 fL (80.0-100.0); MEAN PLATELET VOLUME 9.6 fL (7.4-10.4); MONOCYTES 7.8 % (2-11); NEUTROPHIL ABS# 1.89 10x3/uL (1.78-5.38); PLATELET COUNT 286 10x3/uL (130-400); RBC 3.16 10x6/uL (4.20-6.10); RDW 15.3 % (11.5-14.5); WBC 3.3 10x3/uL (4.8-10.8)
[2020-11-10 06:52] LABS: ALBUMIN 2.7 g/dL (3.4-5.0); ALKALINE PHOSPHATASE 148 U/L (30-120); ALT (SGPT) 11 U/L (10-68); BILIRUBIN - TOTAL 0.41 mg/dL (0.2-1.3); CALCIUM 8.5 mg/dL (8.5-10.1); CARBON DIOXIDE 24.1 mmol/L (21.0-32.0); CHLORIDE - SERUM 107 mmol/L (98-107); CREATININE - SERUM 1.1 mg/dL (0.6-1.3); GLUCOSE 89 mg/dL (74-106); POTASSIUM - SERUM 3.8 mmol/L (3.5-5.1); PROTEIN - SERUM 6.9 g/dL (6.4-8.2); SODIUM 143 mmol/L (136-145); eGFR NON AFRICAN AMERICAN 70 mL/min (90-120)
[2020-11-10 06:53] LABS: CALC OSMOLALITY 284 mosm/kg (275-300); CREATINE KINASE 434 UL (21-232); UREA NITROGEN 15 mg/dL (7-18)
[2020-11-10 07:09] LABS: APTT 32.6 SECONDS (22.8-39.4); INR 1.27 (0.85-1.17); PROTIME 14.8 SECONDS (11.6-15.0)
--- NOTE | 2020-11-10 07:17 | NUR ---
LYING IN BED,WITHOUT SIGNS OF DISTRESS.
[2020-11-10 08:30] VITALS: BP 112/62
[2020-11-10 08:57] LABS: % SATURATION 21 % (15-55); IRON 34 ug/dl (35-150); TOTAL IRON BIND CAPACITY 159 ug/dl (260-445); UNSAT IRON BIND CAPACITY 125 ug/dl (150-375)
[2020-11-10 09:06] LABS: BASOPHILS 2.8 % (0-2); EOSINOPHILS 4.5 % (0-7); HEMOGLOBIN 9.3 g/dL (13.5-17.5); LYMPHOCYTE ABS# 1.02 10x3/uL (1.32-3.57); LYMPHOCYTES 28.8 % (15-50); MCH 29.7 pg (26.0-34.0); MCV 95.8 fL (80.0-100.0); MEAN PLATELET VOLUME 9.4 fL (7.4-10.4); MONOCYTES 10.7 % (2-11); NEUTROPHIL ABS# 1.88 10x3/uL (1.78-5.38); NEUTROPHILS 53.2 % (40-80); PLATELET COUNT 258 10x3/uL (130-400); RBC 3.13 10x6/uL (4.20-6.10); RDW 15.5 % (11.5-14.5); WBC 3.5 10x3/uL (4.8-10.8)
[2020-11-10 09:33] LABS: ALBUMIN 2.8 g/dL (3.4-5.0); ANION GAP 14.2 mmol/L (8-16); BILIRUBIN - TOTAL 0.48 mg/dL (0.2-1.3); CALCIUM 8.5 mg/dL (8.5-10.1); CARBON DIOXIDE 24.7 mmol/L (21.0-32.0); CREATININE - SERUM 1.1 mg/dL (0.6-1.3); POTASSIUM - SERUM 3.9 mmol/L (3.5-5.1); PROTEIN - SERUM 6.4 g/dL (6.4-8.2)
--- NOTE | 2020-11-10 11:38 | NUR ---
REHAB PRESCREEN RECEIVED. PATIENT WAS JUST DISCHARGED FROM HERE ON October S/P L3-L5 LAMINECTOMY. I HAVE SPOKEN WITH THE THERAPY TEAM AND MY DESIGN PRINTING MACHINE SETTER. IT IS FELT THAT HE WOULD BENIFIT MORE FROM A LOWER LEVEL OF CARE DUE TO HIS MEDICAL NEEDS AND THE DEGREE OF PROGRESSION OF HIS PARKINSON'S. I AM SORRY, BUT WE WILL HAVE TO REFUSE THIS PATIENT FOR INPATIENT REHAB. I HAVE CALLED AND EXPLAINED THIS TO RAJINDER GURROLA RN . THANK YOU FOR THIS REFERRAL. JOEL NORTON RN CLINICAL LIAISON, INPATIENT REHAB
[2020-11-10 12:16] VITALS: Ht 185.4 cm; Wt 63.5 kg
[2020-11-10 14:00] VITALS: BP 105/56
--- NOTE | 2020-11-10 14:33 | MORECARE ---
CASE MANAGEMENT DISCHARGE SUMMARY PATIENT: JUAN CHOUDHURY UNIT: [id number] ADM DATE: 11/09/20 AGE: 75 : 47 SEX: M ROOM/BED: D.2207 AUTHOR: ILYA,DOC PHYSICIAN: REFERRING PHYSICIAN: ADITI CAPELLAN MD DATE OF SERVICE: 11/10/20 Case Management Discharge Planning Summary COMMENTS ENTERED DATE: 11/10/20 14:19 CT COMMENT TYPE: Discharge Planning REVIEWER: Lily Zavala Per [facility] inpatient rehab he will not be accepted down there. I have sent the referral to [facility] to see if he would be a candidate for them. DCP REVIEW SUMMARY ANTICIPATED D/C DATE: EXPECTED LOS : CASE STATUS: DCP Initiated INITIAL REVIEW: 11/09/2020 INITIAL REVIEWER: Lily Zavala FINAL DISCHARGE DISPOSITION: : FINAL REVIEWER: FINAL REVIEW DATE: DCP Focus Questions & Answers QUESTION: ANSWER : PATIENT: JUAN CHOUDHURY ENCOUNTER: [id number] MEDICAL RECORD#: [id number] ADMISSION DATE: 11/09/2020 DISCHARGE DATE: ATTENDING MD: ADITI ABRAMS : AGE: 75 MARITAL STATUS: M DC PLAN ID: [id number] FACILITY: [facility] PRINTED ON: 11/10/20 14:32 CT All edits/amendments must be made on the electronic document DICTATION DATE: 11/10/201431 SOLDERER ELECTRONIC: MILAN 11/10/201431 RPT#: [id number] DC DATE: STATUS: ADM IN [facility] [address] [place] [address] END OF REPORT
--- NOTE | 2020-11-10 15:38 | MORECARE ---
CASE MANAGEMENT DISCHARGE SUMMARY PATIENT: JUAN CHOUDHURY UNIT: [id number] ADM DATE: 11/09/20 AGE: 75 : 47 SEX: M ROOM/BED: D.2207 AUTHOR: ILYA,DOC PHYSICIAN: REFERRING PHYSICIAN: ADITI CAPELLAN MD DATE OF SERVICE: 11/10/20 Case Management Discharge Planning Summary COMMENTS ENTERED DATE: 11/10/20 15:35 CT COMMENT TYPE: Discharge Planning REVIEWER: Lily Bro with [facility] is here speaking with patient ENTERED DATE: 11/10/20 14:19 CT COMMENT TYPE: Discharge Planning REVIEWER: Lily Zavala Per [facility] inpatient rehab he will not be accepted down there. I have sent the referral to [facility] to see if he would be a candidate for them. DCP REVIEW SUMMARY ANTICIPATED D/C DATE: EXPECTED LOS : CASE STATUS: DCP Initiated INITIAL REVIEW: 11/09/2020 INITIAL REVIEWER: Lily Zavala FINAL DISCHARGE DISPOSITION: : FINAL REVIEWER: FINAL REVIEW DATE: DCP Focus Questions & Answers QUESTION: ANSWER : PATIENT: JUAN CHOUDHURY ENCOUNTER: [id number] MEDICAL RECORD#: [id number] ADMISSION DATE: 11/09/2020 DISCHARGE DATE: ATTENDING MD: ADITI ABRAMS : AGE: 75 MARITAL STATUS: M DC PLAN ID: [id number] FACILITY: [facility] PRINTED ON: 11/10/20 15:38 CT All edits/amendments must be made on the electronic document DICTATION DATE: 11/10/201537 TAX COLLECTION COORDINATOR: MILAN 11/10/201537 RPT#: [id number] DC DATE: STATUS: ADM IN [facility] [address] [place] [address] END OF REPORT
--- NOTE | 2020-11-10 17:05 | NUR ---
OT NOTE: PT CAN ASSIST WITH ROLLING TO L SIDE. PT REQUIRED MOD A FOR SIDE ROLLING DURING LB HYGIENE. PT REQUIRED TOTAL A WITH LB HYGIENE. PT REQUIRED MAX A FOR POSITIONING. [id number] THANK YOU,AMINATA WOODRUFF
[2020-11-10 17:29] VITALS: BP 108/54
[2020-11-10 20:00] VITALS: BP 109/49
[2020-11-11] VITALS: BP 141/60
[2020-11-11 04:00] VITALS: BP 135/69
--- NOTE | 2020-11-11 04:11 | NUR ---
Assumed care of pt after report/rounds. Pt remains A&OX4 and verbalizes wants/needs clearly and without hesitation or difficulty. Pt was self transferring last eveing with family in room. This nurse and charge nurse performed pt teaching regarding safety. Reinforced use of call light and ensured bed alarm on appropriately. Pt has utilized call light all night to request assist. Pt does refuse entomology teacher socks over specialized compression wraps for BLE's. Utilizing CPAP at night and less SOBOE. Pt is steady on feet when out of bed. No changes in gait observed when assisting to and from bathroom and pt able to perform all ADL's for hygeine per self.
--- NOTE | 2020-11-11 04:16 | NUR ---
Assumed care of pt after report/rounds. Pt A&OX4 and verbalizes wants/needs clearly and without hesitation. Pt continues to have generalized weakness with obvious deficit to Lt side extremities. Needs to be fed. Pt is incontinent of both B&B and reports this started after prior back surgery about a month ago. Sutures to back incision remain to a well approximated surgical site that is SMT TECHNICIAN. Condom cath placed on cath with request from pt and to ensure skin integrity to spinal area. Pt was assisted with a bed bath last night. This nurse also spoke with spouse on phone regarding home med that was not brought in yesterday. She verbalized she would be bringing same in today. Pt is resting in bed at this time. Denies pain/discomfort t/o the night except when turning and repositioning but, subsides as soon as movements completed.
[2020-11-11 07:12] LABS: BASOPHILS 2.1 % (0-2); EOSINOPHILS 5.6 % (0-7); HEMATOCRIT 29.5 % (42.0-54.0); HEMOGLOBIN 8.9 g/dL (13.5-17.5); IMMATURE GRANULOCYTES 0.2 % (0-5); LYMPHOCYTE ABS# 1.11 10x3/uL (1.32-3.57); LYMPHOCYTES 25.9 % (15-50); MCH 29.4 pg (26.0-34.0); MCHC 30.2 g/dL (31.0-37.0); MCV 97.4 fL (80.0-100.0); MEAN PLATELET VOLUME 9.6 fL (7.4-10.4); MONOCYTES 7.9 % (2-11); NEUTROPHIL ABS# 2.49 10x3/uL (1.78-5.38); NEUTROPHILS 58.3 % (40-80); PLATELET COUNT 272 10x3/uL (130-400); RBC 3.03 10x6/uL (4.20-6.10); RDW 15.7 % (11.5-14.5); WBC 4.3 10x3/uL (4.8-10.8)
[2020-11-11 07:57] LABS: ALBUMIN 2.4 g/dL (3.4-5.0); ALKALINE PHOSPHATASE 131 U/L (30-120); ALT (SGPT) 10 U/L (10-68); CARBON DIOXIDE 24.8 mmol/L (21.0-32.0); CHLORIDE - SERUM 110 mmol/L (98-107); GLUCOSE 81 mg/dL (74-106); PROTEIN - SERUM 6.3 g/dL (6.4-8.2); SODIUM 143 mmol/L (136-145); eGFR NON AFRICAN AMERICAN 78 mL/min (90-120)
[2020-11-11 07:59] LABS: CALC OSMOLALITY 282 mosm/kg (275-300); CREATINE KINASE 233 UL (21-232); POTASSIUM - SERUM 3.3 mmol/L (3.5-5.1); UREA NITROGEN 11 mg/dL (7-18)
[2020-11-11 08:00] LABS: CKMB 1.2 U/L (0.0-3.6)
[2020-11-11 08:47] VITALS: BP 134/74
--- NOTE | 2020-11-11 10:07 | NUR ---
RESTING IN BED, NO DISTRESS NOTED, IV PER R UPPER ARM, VERY WEAK, FEED PER STAFF
--- NOTE | 2020-11-11 10:14 | NUR ---
OT NOTE: PRACTICED EXTENSIVE NEURO ACT TODAY. SITTING BALANCE, WT BEARING, GROSS MOTOR ACT. PT IS VERY WEAK IN ALL 4 EXTREMETIES. POOR TRUNK STRENGTH, LIMITED AROM IN L SHOULDER DUE TO PREVIOUS RC INJURY..POOR CLOTHING SORTER STRENGTH AND COORDINATION IN B HANDS. LIMITED CONTROL OF UES.. ATTEMPTED TO STAND WITH MAX X 2 BUT PT BUCKLED AND HAD TO BE PLACED BACK ON BED. TOTAL ASSIST WITH SIT TO SUPINE; MAX ASSIST WITH SIT TO SUPINE; REPOSITIONED WITH MAX ASSIST; ATTEMPTED USING TRAPEZE BAR BUT PT IS TOO WEAK AND DOES NOT HAVE MOTOR COORDINATION IN HANDS TO CLOTHING SORTER BAR.. PT PROVIDES EXTENSIVE MEDICAL HISTORY LEADING UP TO CURRENT FUNCTIONAL STATUS.. UNSURE OF ACCURACY OF THIS INFO, HOWEVER, HE REPORTS THAT PRIOR TO BACK SURGERY, HE WAS WALKING, DRIVING, HAD NO DIFFICULTY WITH UE MOVEMENT OR COORDINATION.. HOWEVER, PT HAD LOWER BACK SURGERY WHICH DOESNT EXPLAIN UPPER BODY WEAKNESS AND COORDINATION IMPAIRMENT. PT STATES THAT HE THINKS HE HAD A STROKE SOMETIME AFTER THE SURGERY...PT DOES NOT EXHIBIT INCREASED WEAKNESS ON ONE SIDE VS THE OTHER.. ITS TOTAL BODY WEAKNESS. 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 PT ALSO HAS R KNEE CONTRACTURE THATS PRETTY SEVERE.. APPROX -40 DEGREES EXTENSION (THIS WOULD NOT HAPPEN IN A 2 WK TIME PERIOD).. THERAPIST ASKED IF PT HAD ANY NECK PAIN.. HE STATED THAT HE HAD SEEN A IN [place] WHO TOLD HIM HE HAD " DISK PROBLEMS, BUT NOT SEVERE ENOUGH TO OPERATE" ENZO BLACKBURN, OTR/L [phone]
--- NOTE | 2020-11-11 11:00 | MORECARE ---
CASE MANAGEMENT DISCHARGE SUMMARY PATIENT: JUAN CHOUDHURY UNIT: [id number] ADM DATE: 11/09/20 AGE: 75 : 47 SEX: M ROOM/BED: D.2207 AUTHOR: ILYA,DOC PHYSICIAN: REFERRING PHYSICIAN: ADITI CAPELLAN MD DATE OF SERVICE: 11/11/20 Case Management Discharge Planning Summary COMMENTS ENTERED DATE: 11/10/20 15:35 CT COMMENT TYPE: Discharge Planning REVIEWER: Lily Bro with [facility] is here speaking with patient ENTERED DATE: 11/10/20 14:19 CT COMMENT TYPE: Discharge Planning REVIEWER: Lily Zavala Per [facility] inpatient rehab he will not be accepted down there. I have sent the referral to [facility] to see if he would be a candidate for them. DCP REVIEW SUMMARY ANTICIPATED D/C DATE: EXPECTED LOS : CASE STATUS: DCP Initiated INITIAL REVIEW: 11/09/2020 INITIAL REVIEWER: Lily Zavala FINAL DISCHARGE DISPOSITION: : FINAL REVIEWER: FINAL REVIEW DATE: DCP Focus Questions & Answers QUESTION: ANSWER : PATIENT: JUAN CHOUDHURY ENCOUNTER: [id number] MEDICAL RECORD#: [id number] ADMISSION DATE: 11/09/2020 DISCHARGE DATE: ATTENDING MD: ADITI ABRAMS : AGE: 75 MARITAL STATUS: M DC PLAN ID: [id number] FACILITY: [facility] PRINTED ON: 11/11/20 11:00 CT All edits/amendments must be made on the electronic document DICTATION DATE: 11/11/20 1100 COMPANY MARKER: DM 11/11/20 1100 RPT#: [id number] DC DATE: STATUS: ADM IN [facility] [address] [place] [address] END OF REPORT
[2020-11-11 12:25] VITALS: BP 108/55
[2020-11-11] MEDS ORDERED: SINEMET CR 50-1 EACH PO (14:09)
[2020-11-11 16:57] VITALS: BP 121/61
--- NOTE | 2020-11-11 17:51 | NUR ---
OT NOTE: PT COMPLETED SIDE ROLLING WITH MIN-MOD A. PT COMPLETED BRIDGING WITH LE STABILIZATION AND MOD A. PT REQUIRED TOTAL A FOR LB HYGIENE TASKS. [phone] AURA BASSETT COTA
[2020-11-11 20:00] VITALS: BP 145/65
--- NOTE | 2020-11-12 00:59 | NUR ---
PT IN BED RESTING. NO COMPLAINTS OF PAIN NOR DISTRESS NOTED AT THIS TIME. CONDOM CATH WAS REPLACED. BED IN LOWEST POSITON WITH CALL AUGUSTIN LIGHT IN REACH.
[2020-11-12 04:00] VITALS: BP 145/73
[2020-11-12 06:09] LABS: EOSINOPHILS 3.8 % (0-7); HEMATOCRIT 29.4 % (42.0-54.0); HEMOGLOBIN 9.1 g/dL (13.5-17.5); IMMATURE GRANULOCYTES 0.2 % (0-5); LYMPHOCYTES 20.2 % (15-50); MCH 29.8 pg (26.0-34.0); MCV 96.4 fL (80.0-100.0); MONOCYTES 9.3 % (2-11); NEUTROPHIL ABS# 3.23 10x3/uL (1.78-5.38); NEUTROPHILS 65.5 % (40-80); PLATELET COUNT 255 10x3/uL (130-400); RBC 3.05 10x6/uL (4.20-6.10); RDW 15.6 % (11.5-14.5); WBC 4.9 10x3/uL (4.8-10.8)
[2020-11-12 06:31] LABS: ALBUMIN 2.4 g/dL (3.4-5.0); ALKALINE PHOSPHATASE 133 U/L (30-120); BILIRUBIN - TOTAL 0.46 mg/dL (0.2-1.3); CALC OSMOLALITY 281 mosm/kg (275-300); CALCIUM 8.2 mg/dL (8.5-10.1); CHLORIDE - SERUM 108 mmol/L (98-107); CREATINE KINASE 120 UL (21-232); CREATININE - SERUM 0.9 mg/dL (0.6-1.3); GLUCOSE 92 mg/dL (74-106); POTASSIUM - SERUM 3.5 mmol/L (3.5-5.1); PROTEIN - SERUM 6.4 g/dL (6.4-8.2); SODIUM 142 mmol/L (136-145); UREA NITROGEN 11 mg/dL (7-18); eGFR NON AFRICAN AMERICAN 88 mL/min (90-120)
[2020-11-12 06:32] LABS: ALT (SGPT) 6 U/L (10-68)
[2020-11-12] MEDS ORDERED: MIRAPEX1.5 MG PO (08:27)
[2020-11-12 08:48] VITALS: BP 128/68
--- NOTE | 2020-11-12 12:11 | NUR ---
OT NOTE: REQUIRED MAX ASSIST X 2 FOR BED MOB; SITTING BALANCE WITH MAX ASSIST; PT WITH CONT C/O BACK PAIN AT INCISION SITE. VOICE MUCH WEAKER TODAY.. DIFFICULTY HEARING PT SPEAK. EXTENSIVE BED MOB INCLUDING ROLLING SIDE TO SIDE WITH MAX X 2 AND LINEN CHANGE. REPOSITIONED WITH MAX ASSIST X 2.. DIFFICULT TIME GETTING PT COMFORTABLE. ATTEMPTED TO PLACE ON HIS SIDE FOR PAIN CONTROL IN BACK. A/AROM TO B UES; L UE PLACED ON PILLOW DUE TO EDEMA. ENZO BLACKBURN, OTR/L [phone]
[2020-11-12 12:46] VITALS: BP 111/58
--- NOTE | 2020-11-12 13:45 | NUR ---
TAMI WENT TO SPEAK WITH PATIENT AND ABOUT DC PLANNING. IS QUESTIONING HIS HOME MEDICATIONS AND HOSPITAL MEDICATIONS SHE STATED THAT SHE HAS PROVIDED THE HOSPITAL WITH THE FOLLOWING MEDS PCN IV ( THAT WAS FROM [facility]) MIRAPLEX 1.5 MG ER SILODOSIN 8MG GOCOVRI 137MG 2 TABS AT NIGHT CARB/LEVO ER 50/200 I CALLED [facility]ADYS IN PHARMACY TO GO OVER THE MEDICATIONS TO TRY CLEAR THINGS UP. GLADYS STATED THAT THE IV PCN IS BEING GIVEN PER THE 'S REQUEST & THE MIRAPLEX ER, GOCOVRI, AND SILODOSIN THE HOSPITAL DOES NOT HAVE WHAT HE TAKES SO THEY ARE GIVEN THE HOME MEDICATIONS. GLADYS STATED THAT THEY HAVE RETURNED THE CARB/LEVO ER 50/200 TO HIM BECAUSE THEY ARE USING THE HOSPITALS MEDICATION. CARB/LEVO ER 50/200 WAS LOCKED UP IN THE PATIENT CASSETTE AND I RETURNED THAT TO THE AND SHE WAS TAKING IT HOME. I ALSO LET GLADYS KNOW THAT HIS IV PCN THAT THE PATIENT BROUGHT TO THE HOSPITAL IS ONLY GOOD THROUGH 11/14/20 AND THE HOSPITAL WILL NEED TO THEN START SUPPLYING IF THE PATIENT IS STILL IN THE HOSPITAL ELLIE THE PATIENTS BEDSIDE NURSE AWARE OF THE ABOVE
--- NOTE | 2020-11-12 16:19 | NUR ---
OT NOTE: PT REQUIRED TOTAL A FOR BED MOBILITY TASKS. PT REQUIRED EXTENDED TIME. PT REQUIRED TOTAL A FOR LB HYGIENE TASKS. PT COMPLETED SUPINE TO SIT WITH TOTAL A . PT COMPLETED EOB SITTING WITH BALANCE WITH MAX A-TOTAL A SECONDARY TO POOR TRUNK STRENGTH. [id number] AURA BASSETT COTA
[2020-11-12 17:11] VITALS: BP 132/60
[2020-11-12 20:23] VITALS: BP 110/59
[2020-11-13 04:00] VITALS: BP 141/73
--- NOTE | 2020-11-13 05:13 | NUR ---
I have reviewed this patient and I concur with the Shift Assessment completed by the Licensed Practical Nurse today this shift.
[2020-11-13 05:45] LABS: BASOPHILS 1.5 % (0-2); EOSINOPHILS 2.3 % (0-7); HEMATOCRIT 28.6 % (42.0-54.0); HEMOGLOBIN 8.8 g/dL (13.5-17.5); IMMATURE GRANULOCYTES 0.3 % (0-5); LYMPHOCYTES 17.6 % (15-50); MCH 29.3 pg (26.0-34.0); MCHC 30.8 g/dL (31.0-37.0); MCV 95.3 fL (80.0-100.0); MEAN PLATELET VOLUME 9.8 fL (7.4-10.4); NEUTROPHIL ABS# 2.84 10x3/uL (1.78-5.38); NEUTROPHILS 71.3 % (40-80); PLATELET COUNT 229 10x3/uL (130-400); RDW 15.3 % (11.5-14.5)
[2020-11-13 06:19] LABS: ALBUMIN 2.3 g/dL (3.4-5.0); ALKALINE PHOSPHATASE 122 U/L (30-120); ALT (SGPT) 7 U/L (10-68); BILIRUBIN - TOTAL 0.51 mg/dL (0.2-1.3); CALC OSMOLALITY 281 mosm/kg (275-300); CARBON DIOXIDE 24.8 mmol/L (21.0-32.0); CHLORIDE - SERUM 107 mmol/L (98-107); CREATININE - SERUM 0.9 mg/dL (0.6-1.3); GLUCOSE 96 mg/dL (74-106); POTASSIUM - SERUM 3.5 mmol/L (3.5-5.1); PROTEIN - SERUM 6.2 g/dL (6.4-8.2); SODIUM 142 mmol/L (136-145); UREA NITROGEN 10 mg/dL (7-18); eGFR NON AFRICAN AMERICAN 88 mL/min (90-120)
[2020-11-13 06:24] LABS: CKMB 1.8 U/L (0.0-3.6); CREATINE KINASE 246 UL (21-232)
[2020-11-13 08:00] VITALS: BP 155/88
--- NOTE | 2020-11-13 08:25 | MORECARE ---
CASE MANAGEMENT DISCHARGE SUMMARY PATIENT: JUAN CHOUDHURY UNIT: [id number] ADM DATE: 11/09/20 AGE: 75 : 47 SEX: M ROOM/BED: D.2207 AUTHOR: ILYA,DOC PHYSICIAN: REFERRING PHYSICIAN: ADITI CAPELLAN MD DATE OF SERVICE: 11/13/20 Case Management Discharge Planning Summary COMMENTS ENTERED DATE: 11/10/20 15:35 CT COMMENT TYPE: Discharge Planning REVIEWER: Lily Bro with [facility] is here speaking with patient ENTERED DATE: 11/10/20 14:19 CT COMMENT TYPE: Discharge Planning REVIEWER: Lily Zavala Per [facility] inpatient rehab he will not be accepted down there. I have sent the referral to [facility] to see if he would be a candidate for them. DCP REVIEW SUMMARY ANTICIPATED D/C DATE: EXPECTED LOS : CASE STATUS: DCP Initiated INITIAL REVIEW: 11/09/2020 INITIAL REVIEWER: Lily Zavala FINAL DISCHARGE DISPOSITION: : FINAL REVIEWER: FINAL REVIEW DATE: DCP Focus Questions & Answers DCP Screen QUESTION: ANSWER High Risk Factors: : 3 or more ED visits within the last 60 days DCP Evaluation QUESTION: ANSWER Patient's ability to cope with chronic illness : d. No chronic illness Would patient like to participate in any Care Coordination programs (if applicable): : Not applicable Mental health screen: : No mental health history DCP Re-evaluation QUESTION: ANSWER Would patient like to participate in any Care Coordination programs (if applicable): : Not applicable PATIENT: JUAN CHOUDHURY ENCOUNTER: [id number] MEDICAL RECORD#: [id number] ADMISSION DATE: 11/09/2020 DISCHARGE DATE: ATTENDING MD: ADITI ABRAMS : AGE: 75 MARITAL STATUS: M DC PLAN ID: [id number] FACILITY: [facility] PRINTED ON: 11/13/20 8:25 CT All edits/amendments must be made on the electronic document DICTATION DATE: 11/13/20824 WIND ENERGY MECHANIC: MILAN 11/13/20824 RPT#: [id number] DC DATE: STATUS: ADM IN [facility] [address] [place] [address] END OF REPORT
--- NOTE | 2020-11-13 08:38 | MORECARE ---
CASE MANAGEMENT DISCHARGE SUMMARY PATIENT: JUAN CHOUDHURY UNIT: [id number] ADM DATE: 11/09/20 AGE: 75 : 47 SEX: M ROOM/BED: D.2207 AUTHOR: ILYA,DOC PHYSICIAN: REFERRING PHYSICIAN: ADITI CAPELLAN MD DATE OF SERVICE: 11/13/20 Case Management Discharge Planning Summary COMMENTS ENTERED DATE: 11/13/20 8:26 CT COMMENT TYPE: Discharge Planning REVIEWER: Lily Zavala late entry 11/12/20 @ 1330 CM met with patient to complete initial dc planning assessment. CM educated patient on the CM role and verbal consent given by patient to complete assessment. Patient lives at home with his where he is no longer independent with his care. Patient has recently been at inpatient rehab at [facility] and went home with home health and IV abx. He will need a higher level of care prior to discharging home. The would like to go to [facility] as their first choice and [place] as their second choice. COLLINS signed for the above. Adali with [facility] called and asked if he would be a candidate for [facility] due to his manager terminal abx treatment prior to him coming to them. I called [facility] and spoke with Meenu and she stated to fax over the referral. At home they currently hace a wheelchair, walker , bsc, shower chair, IV abx supplies and are set up with [facility]. CM will continue to follow and will assist as needed with dc plans/needs. ENTERED DATE: 11/10/20 15:35 CT COMMENT TYPE: Discharge Planning REVIEWER: Lily Bro with [facility] is here speaking with patient ENTERED DATE: 11/10/20 14:19 CT COMMENT TYPE: Discharge Planning REVIEWER: Lily Zavala Per [facility] inpatient rehab he will not be accepted down there. I have sent the referral to [facility] to see if he would be a candidate for them. DCP REVIEW SUMMARY ANTICIPATED D/C DATE: EXPECTED LOS : CASE STATUS: DCP Initiated INITIAL REVIEW: 11/09/2020 INITIAL REVIEWER: Lily Zavala FINAL DISCHARGE DISPOSITION: : FINAL REVIEWER: FINAL REVIEW DATE: WVP Focus Questions & Answers DCP Screen QUESTION: ANSWER High Risk Factors: : 3 or more ED visits within the last 60 days DCP Evaluation QUESTION: ANSWER Family / Caregiver's ability to cope with chronic illness: : b. Minimal (occasionally not dependable to meet pt's. needs, can meet pt's. basic ADL's) Patient gives permission to discuss discharge plans with: (name, relationship and number) : Patient's ability to cope with chronic illness : c. Inadequate (3+ ED visits in 6 mos., readmits within 30 days, 2+ hospital admissions in 1 yr.) Patient's current cognitive status: : Intermittently confused / memory changes Patient and/or caregiver agree upon recommended discharge plan? : Yes Physical Status: : Compromised nutritional status Physical Status: : Compromised skin integrity Physical Status: : Indwelling urinary catheter Physical Status: : Mobility impaired Family / Caregiver's ability to cope with chronic illness: : c. Inadequate (Enables pt. to make bad choices, cannot meet pt's. needs, difficult family dynamics) Functional screen assessment: : Unable to manage ADLs without immediate ongoing assistance Functional screen assessment: : New onset in weakness or paralysis Does the patient have the ability to pay for or attain post discharge needs / services? : Yes Alternate discharge plan (if recommended plan not agreed upon by patient and/or caregiver): : [facility] Partial Dependence, assistance required for: : Ambulation / Mobility Partial Dependence, assistance required for: : Bathing Partial Dependence, assistance required for: : Dressing Partial Dependence, assistance required for: : Eating Living Arrangements: : Home with Spouse/Significant Other Is there a likelihood that the patient will require additional services to return to the preadmission environment? : Yes Living arrangements comments: : LIVES WITH SPOUSE, BUT UNABLE TO CARE FOR SELF AND UNABLE TO PROVIDE WHAT HE NEEDS RIGHT NOW Baseline cognitive status: : Intermittently confused / memory changes Patient with capacity for self-care or can be cared for in same environment as prior to hospitalization? : No Results of this evaluation have been discussed with: : Patient Results of this evaluation have been discussed with: : Spouse Preadmission facility can/cannot provide post hospital level of care needs: : Can - at higher level of care than preadmission Physical environment modification needed / anticipated for discharge: : Yes Medication Management: : Evidence of High Risk Meds (check hospital policy) Medication Management: : Evidence of Polypharmacy (greater than 10 meds) Pharmacy name(s): : [facility] Planned post hospital services available for patient? : Yes Does Patient have transportation to get home and to follow-up medical appointments when discharged from the hospital? : Yes Planned post hospital services covered by insurance plan? : Yes Would patient like to participate in any Care Coordination programs (if applicable): : Not applicable Does the patient have electricity at home? : Yes Does the patient have running water in their house? : Yes Equipment in use: : Bedside Commode Equipment in use: : Shower Chair Equipment in use: : Walker - Rolling Equipment in use: : Wheelchair Other Equipment comments: : IV ABX AND SUPPLIES WITH [facility] Equipment agency name and contact information: : [facility] Mental health screen: : No mental health history Psychosocial status: : Adult with physical limitations Abuse/Neglect: : None Resources / Services in place: : Home health Contact information for resources in use: : [facility] IV DCP Re-evaluation QUESTION: ANSWER Would patient like to participate in any Care Coordination programs (if applicable): : Not applicable PATIENT: JUAN CHOUDHURY ENCOUNTER: [id number] MEDICAL RECORD#: [id number] ADMISSION DATE: 11/09/2020 DISCHARGE DATE: ATTENDING MD: ADITI ABRAMS : AGE: 75 MARITAL STATUS: M DC PLAN ID: [id number] FACILITY: [facility] PRINTED ON: 11/13/20 8:38 CT All edits/amendments must be made on the electronic document DICTATION DATE: 11/13/20837 COMPUTER CUSTOMER SUPPORT SPECIALIST: MILAN 11/13/20837 RPT#: [id number] DC DATE: STATUS: ADM IN [facility] [address] [place] [address] END OF REPORT
[2020-11-13 11:00] VITALS: BP 124/71
--- NOTE | 2020-11-13 12:19 | NUR ---
Nutrition Follow-up: Diet: Low Sodium PO intake: 50-100% x 3 meals yesterday. He states that his appetite is good when the food is good. He does not like being on a low sodium diet. Last BM: 11/11/20 Wt: 140# (11/10/20) Meds noted: banana bag@125, NS@50 Labs reviewed Recommend continue current PO diet. Will continue to honor food preferences. Will add Ensure with meals. RD will follow-up 11/17/20.
--- NOTE | 2020-11-13 14:28 | NUR ---
OT NOTE: PT REQUIRED MAX-TOTAL A FOR SUPINE TO SIT. PT COMPLETED CORE STABILITY TASKS WHILE SEATED AT EOB. PT REQUIRED MAX A FOR SITTING BALANCE SECONDARY TO DECREASED CORE STRENGTH/COORDINATION. PT REQUIRED MOD-MAX A FOR PROPER HAND PLACEMENT DURING SITTING FOR INCREASED STABILITY. PT REQUIRED TOTAL A FOR LB HYGIENE. [phone] THANK YOU,AMINATA WOODRUFF
--- NOTE | 2020-11-13 14:28 | MORECARE ---
CASE MANAGEMENT DISCHARGE SUMMARY PATIENT: JUAN CHOUDHURY UNIT: [id number] ADM DATE: 11/09/20 AGE: 75 : 47 SEX: M ROOM/BED: D.2207 AUTHOR: ILYA,DOC PHYSICIAN: REFERRING PHYSICIAN: ADITI CAPELLAN MD DATE OF SERVICE: 11/13/20 Case Management Discharge Planning Summary COMMENTS ENTERED DATE: 11/13/20 14:25 CT COMMENT TYPE: Discharge Planning REVIEWER: Lily Zavala I SENT A REFERRAL TO [facility] TO SEE IF HE WOULD QUALIFY FOR THERE ENTERED DATE: 11/13/20 8:26 CT COMMENT TYPE: Discharge Planning REVIEWER: Lily Zavala late entry 11/12/20 @ 1330 CM met with patient to complete initial dc planning assessment. CM educated patient on the CM role and verbal consent given by patient to complete assessment. Patient lives at home with his where he is no longer independent with his care. Patient has recently been at inpatient rehab at [facility] and went home with home health and IV abx. He will need a higher level of care prior to discharging home. The would like to go to [facility] as their first choice and [place] as their second choice. COLLINS signed for the above. [facility]ocha called and asked if he would be a candidate for [facility] due to his usp abx treatment prior to him coming to them. I called [facility] and spoke with Meenu and she stated to fax over the referral. At home they currently hace a wheelchair, walker , bsc, shower chair, IV abx supplies and are set up with [facility]. CM will continue to follow and will assist as needed with dc plans/needs. ENTERED DATE: 11/10/20 15:35 CT COMMENT TYPE: Discharge Planning REVIEWER: Lily Rocha is here speaking with patient ENTERED DATE: 11/10/20 14:19 CT COMMENT TYPE: Discharge Planning REVIEWER: Lily Zavala Per [facility] inpatient rehab he will not be accepted down there. I have sent the referral to [facility] to see if he would be a candidate for them. DCP REVIEW SUMMARY ANTICIPATED D/C DATE: EXPECTED LOS : CASE STATUS: DCP Initiated INITIAL REVIEW: 11/09/2020 INITIAL REVIEWER: Lily Zavala FINAL DISCHARGE DISPOSITION: : FINAL REVIEWER: FINAL REVIEW DATE: DCP Focus Questions & Answers DCP Screen QUESTION: ANSWER High Risk Factors: : 3 or more ED visits within the last 60 days DCP Evaluation QUESTION: ANSWER Family / Caregiver's ability to cope with chronic illness: : b. Minimal (occasionally not dependable to meet pt's. needs, can meet pt's. basic ADL's) Patient gives permission to discuss discharge plans with: (name, relationship and number) : Patient's ability to cope with chronic illness : c. Inadequate (3+ ED visits in 6 mos., readmits within 30 days, 2+ hospital admissions in 1 yr.) Patient's current cognitive status: : Intermittently confused / memory changes Patient and/or caregiver agree upon recommended discharge plan? : Yes Physical Status: : Compromised nutritional status Physical Status: : Compromised skin integrity Physical Status: : Indwelling urinary catheter Physical Status: : Mobility impaired Family / Caregiver's ability to cope with chronic illness: : c. Inadequate (Enables pt. to make bad choices, cannot meet pt's. needs, difficult family dynamics) Functional screen assessment: : Unable to manage ADLs without immediate ongoing assistance Functional screen assessment: : New onset in weakness or paralysis Does the patient have the ability to pay for or attain post discharge needs / services? : Yes Alternate discharge plan (if recommended plan not agreed upon by patient and/or caregiver): : [facility] Partial Dependence, assistance required for: : Ambulation / Mobility Partial Dependence, assistance required for: : Bathing Partial Dependence, assistance required for: : Dressing Partial Dependence, assistance required for: : Eating Living Arrangements: : Home with Spouse/Significant Other Is there a likelihood that the patient will require additional services to return to the preadmission environment? : Yes Living arrangements comments: : LIVES WITH SPOUSE, BUT UNABLE TO CARE FOR SELF AND UNABLE TO PROVIDE WHAT HE NEEDS RIGHT NOW Baseline cognitive status: : Intermittently confused / memory changes Patient with capacity for self-care or can be cared for in same environment as prior to hospitalization? : No Results of this evaluation have been discussed with: : Patient Results of this evaluation have been discussed with: : Spouse Preadmission facility can/cannot provide post hospital level of care needs: : Can - at higher level of care than preadmission Physical environment modification needed / anticipated for discharge: : Yes Medication Management: : Evidence of High Risk Meds (check hospital policy) Medication Management: : Evidence of Polypharmacy (greater than 10 meds) Pharmacy name(s): : [facility] Planned post hospital services available for patient? : Yes Does Patient have transportation to get home and to follow-up medical appointments when discharged from the hospital? : Yes Planned post hospital services covered by insurance plan? : Yes Would patient like to participate in any Care Coordination programs (if applicable): : Not applicable Does the patient have electricity at home? : Yes Does the patient have running water in their house? : Yes Equipment in use: : Bedside Commode Equipment in use: : Shower Chair Equipment in use: : Walker - Rolling Equipment in use: : Wheelchair Other Equipment comments: : IV ABX AND SUPPLIES WITH [facility] Equipment agency name and contact information: : [facility] Mental health screen: : No mental health history Psychosocial status: : Adult with physical limitations Abuse/Neglect: : None Resources / Services in place: : Home health Contact information for resources in use: : [facility] IV DCP Re-evaluation QUESTION: ANSWER Would patient like to participate in any Care Coordination programs (if applicable): : Not applicable PATIENT: JUAN CHOUDHURY ENCOUNTER: [id number] MEDICAL RECORD#: [id number] ADMISSION DATE: 11/09/2020 DISCHARGE DATE: ATTENDING MD: ADITI ABRAMS : AGE: 75 MARITAL STATUS: M DC PLAN ID: [id number] FACILITY: [facility] PRINTED ON: 11/13/20 14:28 CT All edits/amendments must be made on the electronic document DICTATION DATE: 11/13/20 5917 PRE PLANNING ADVISOR: MILAN 11/13/20 1428 RPT#: [id number] DC DATE: STATUS: ADM IN [facility] [address] [place] [address] END OF REPORT
[2020-11-13 15:00] VITALS: BP 130/76
[2020-11-13 20:00] VITALS: BP 107/58
[2020-11-14 05:10] LABS: BASOPHILS 1.3 % (0-2); HEMATOCRIT 30.4 % (42.0-54.0); HEMOGLOBIN 9.5 g/dL (13.5-17.5); LYMPHOCYTES 15.2 % (15-50); MCH 29.2 pg (26.0-34.0); MCHC 31.3 g/dL (31.0-37.0); MCV 93.5 fL (80.0-100.0); MEAN PLATELET VOLUME 9.8 fL (7.4-10.4); MONOCYTES 8.5 % (2-11); NEUTROPHIL ABS# 3.22 10x3/uL (1.78-5.38); PLATELET COUNT 223 10x3/uL (130-400); RBC 3.25 10x6/uL (4.20-6.10); RDW 14.9 % (11.5-14.5); WBC 4.6 10x3/uL (4.8-10.8)
[2020-11-14 05:30] LABS: ALBUMIN 2.2 g/dL (3.4-5.0); ALKALINE PHOSPHATASE 122 U/L (30-120); ALT (SGPT) 8 U/L (10-68); BILIRUBIN - TOTAL 0.45 mg/dL (0.2-1.3); CALC OSMOLALITY 272 mosm/kg (275-300); CALCIUM 8.2 mg/dL (8.5-10.1); CARBON DIOXIDE 26.5 mmol/L (21.0-32.0); CHLORIDE - SERUM 104 mmol/L (98-107); CREATINE KINASE 169 UL (21-232); CREATININE - SERUM 0.8 mg/dL (0.6-1.3); GLUCOSE 85 mg/dL (74-106); MAGNESIUM - SERUM 2.1 mg/dL (1.8-2.4); POTASSIUM - SERUM 3.7 mmol/L (3.5-5.1); PROTEIN - SERUM 6.4 g/dL (6.4-8.2); SODIUM 138 mmol/L (136-145); UREA NITROGEN 8 mg/dL (7-18); eGFR NON AFRICAN AMERICAN > 90 mL/min (90-120)
[2020-11-14 08:16] VITALS: BP 118/61
[2020-11-14 12:01] VITALS: BP 110/61
[2020-11-14 16:33] VITALS: BP 134/79
--- NOTE | 2020-11-14 19:10 | NUR ---
PATIENT RESTING IN BED WITH NO S/S OF DISTRESS AND DENIES NEEDS AT THIS TIME. BED IN LOWEST POSITION AND CALL LIGHT IN REACH. ENCOURAGED PATIENT TO CALL WITH NEEDS.
[2020-11-14 20:21] VITALS: BP 138/70
--- NOTE | 2020-11-14 21:15 | NUR ---
ADMINISTERED MEDS PER ORDERS. PATIENT KELLY WELL. ENCOURAGED TO CALL WITH NEEDS.
--- NOTE | 2020-11-15 03:10 | NUR ---
CLEANED PATIENT UP AFTER INCONT EPISODE. REPLACED CONDOM CATH
[2020-11-15 04:30] VITALS: BP 153/73
[2020-11-15 06:44] VITALS: BP 90/62
[2020-11-15 07:50] LABS: EOSINOPHILS 3.1 % (0-7); HEMATOCRIT 28.4 % (42.0-54.0); LYMPHOCYTE ABS# 0.72 10x3/uL (1.32-3.57); LYMPHOCYTES 18.8 % (15-50); MCH 29.2 pg (26.0-34.0); MCHC 31.7 g/dL (31.0-37.0); MCV 92.2 fL (80.0-100.0); MEAN PLATELET VOLUME 9.2 fL (7.4-10.4); MONOCYTES 9.4 % (2-11); NEUTROPHIL ABS# 2.59 10x3/uL (1.78-5.38); NEUTROPHILS 67.7 % (40-80); PLATELET COUNT 232 10x3/uL (130-400); RBC 3.08 10x6/uL (4.20-6.10); RDW 14.8 % (11.5-14.5); WBC 3.8 10x3/uL (4.8-10.8)
[2020-11-15 08:08] LABS: ALBUMIN 2.2 g/dL (3.4-5.0); ALKALINE PHOSPHATASE 117 U/L (30-120); ALT (SGPT) 7 U/L (10-68); BILIRUBIN - TOTAL 0.54 mg/dL (0.2-1.3); CALC OSMOLALITY 270 mosm/kg (275-300); CALCIUM 8.3 mg/dL (8.5-10.1); CARBON DIOXIDE 25.8 mmol/L (21.0-32.0); CHLORIDE - SERUM 102 mmol/L (98-107); CREATININE - SERUM 0.7 mg/dL (0.6-1.3); GLUCOSE 86 mg/dL (74-106); MAGNESIUM - SERUM 2.2 mg/dL (1.8-2.4); POTASSIUM - SERUM 3.7 mmol/L (3.5-5.1); PROTEIN - SERUM 6.5 g/dL (6.4-8.2); SODIUM 137 mmol/L (136-145); UREA NITROGEN 6 mg/dL (7-18); eGFR NON AFRICAN AMERICAN > 90 mL/min (90-120)
[2020-11-15 09:34] VITALS: BP 135/71
[2020-11-15 13:37] VITALS: BP 102/66
[2020-11-15 17:41] VITALS: BP 110/55
--- NOTE | 2020-11-15 19:00 | NUR ---
BEDSIDE REPORT RECEIVED AND CARE OF PT ASSUMED. PT LYING IN HIGH KIMBROUGH'S POSITION VISITING WITH FAMILY MEMBER. RIGHT MIDLINE PATENT WITH NS INFUSING AT 50 ML/HR. CONDOM CATH IN PLACE FOR URINARY INCONTINENCE. WILL MONITOR FOR NEEDS.
[2020-11-15 20:00] VITALS: BP 117/69
--- NOTE | 2020-11-15 20:58 | NUR ---
HS MEDICATIONS GIVEN. SAT PT UP TO 90 DEGREES AND GAVE MEDS ONE AT A TIME WITH SIPS OF WATER.
[2020-11-16] VITALS: BP 107/58
[2020-11-16 04:00] VITALS: BP 130/88
[2020-11-16 05:54] LABS: EOSINOPHILS 3.5 % (0-7); HEMATOCRIT 29.4 % (42.0-54.0); IMMATURE GRANULOCYTES 0.3 % (0-5); LYMPHOCYTE ABS# 0.77 10x3/uL (1.32-3.57); LYMPHOCYTES 22.3 % (15-50); MCH 28.8 pg (26.0-34.0); MCHC 30.6 g/dL (31.0-37.0); MCV 93.9 fL (80.0-100.0); MEAN PLATELET VOLUME 9.2 fL (7.4-10.4); MONOCYTES 10.4 % (2-11); NEUTROPHIL ABS# 2.13 10x3/uL (1.78-5.38); NEUTROPHILS 61.5 % (40-80); PLATELET COUNT 232 10x3/uL (130-400); RBC 3.13 10x6/uL (4.20-6.10); RDW 15.1 % (11.5-14.5); WBC 3.5 10x3/uL (4.8-10.8)
[2020-11-16 06:30] LABS: ALBUMIN 2.2 g/dL (3.4-5.0); ALKALINE PHOSPHATASE 116 U/L (30-120); BILIRUBIN - TOTAL 0.63 mg/dL (0.2-1.3); CALCIUM 8.2 mg/dL (8.5-10.1); CARBON DIOXIDE 24.1 mmol/L (21.0-32.0); CHLORIDE - SERUM 103 mmol/L (98-107); GLUCOSE 73 mg/dL (74-106); MAGNESIUM - SERUM 2.2 mg/dL (1.8-2.4); POTASSIUM - SERUM 3.5 mmol/L (3.5-5.1); PROTEIN - SERUM 6.4 g/dL (6.4-8.2); SODIUM 138 mmol/L (136-145)
[2020-11-16 06:35] LABS: ALT (SGPT) 9 U/L (10-68); CALC OSMOLALITY 273 mosm/kg (275-300); CREATININE - SERUM 0.9 mg/dL (0.6-1.3); UREA NITROGEN 10 mg/dL (7-18); eGFR NON AFRICAN AMERICAN 88 mL/min (90-120)
[2020-11-16 08:20] VITALS: BP 145/63
[2020-11-16] MEDS ORDERED: PROTONIX40 MG PO (10:13)
[2020-11-16] MEDS ORDERED: DONEPEZIL HCL5 MG PO (10:13)
[2020-11-16] MEDS ORDERED: PATOWN IV (10:14)
--- NOTE | 2020-11-16 11:42 | MORECARE ---
CASE MANAGEMENT DISCHARGE SUMMARY PATIENT: JUAN CHOUDHURY UNIT: [id number] ADM DATE: 11/09/20 AGE: 75 : 47 SEX: M ROOM/BED: D.2207 AUTHOR: ILYA,DOC PHYSICIAN: REFERRING PHYSICIAN: ADITI CAPELLAN MD DATE OF SERVICE: 11/16/20 Case Management Discharge Planning Summary COMMENTS ENTERED DATE: 11/16/20 11:32 CT COMMENT TYPE: Discharge Planning REVIEWER: Lily Zavala PATIENT WILL BE DISCHARGING TO LTACH TODAY. DR BISWAS IS THE RECEIVING MD HE WILL BE GOING TO ROOM [facility] TODAY IMM SERVED TO AND EXPLAINED ALONG WITH HIS COLLINS FOR LTACH. CM TO FOLLOW AND ASSIST NEEDED ENTERED DATE: 11/13/20 14:25 CT COMMENT TYPE: Discharge Planning REVIEWER: Lily Zavala [facility] IF HE WOULD QUALIFY FOR THERE ENTERED DATE: 11/13/20 8:26 CT COMMENT TYPE: Discharge Planning REVIEWER: Lily Zavala late entry 11/12/20 @ 1330 CM met with patient to complete initial dc planning assessment. CM educated patient on the CM role and verbal consent given by patient to complete assessment. Patient lives at home with his where he is no longer independent with his care. Patient has recently been at inpatient rehab at [facility] and went home with home health and IV abx. He will need a higher level of care prior to discharging home. The would like to go to [facility] as their first choice and [place] as their second choice. COLLINS signed for the above. Adali with [facility] called and asked if he would be a candidate for LTACH due to his shelter abx treatment prior to him coming to them. I called [facility] and spoke with Meenu and she stated to fax over the referral. At home they currently hace a wheelchair, walker , bsc, shower chair, IV abx supplies and are set up with [facility] . CM will continue to follow and will assist as needed with dc plans/needs. ENTERED DATE: 11/10/20 15:35 CT COMMENT TYPE: Discharge Planning REVIEWER: Lily Bro with [facility] is here speaking with patient ENTERED DATE: 11/10/20 14:19 CT COMMENT TYPE: Discharge Planning REVIEWER: Lily Zavala Per [facility] inpatient rehab he will not be accepted down there. I have sent the referral to [facility] to see if he would be a candidate for them. DCP REVIEW SUMMARY ANTICIPATED D/C DATE: EXPECTED LOS : CASE STATUS: DCP Initiated INITIAL REVIEW: 11/09/2020 INITIAL REVIEWER: Lily Zavala FINAL DISCHARGE DISPOSITION: : FINAL REVIEWER: FINAL REVIEW DATE: DCP Focus Questions & Answers DCP Screen QUESTION: ANSWER High Risk Factors: : 3 or more ED visits within the last 60 days DCP Evaluation QUESTION: ANSWER Patient's current cognitive status: : Intermittently confused / memory changes Patient's ability to cope with chronic illness : c. Inadequate (3+ ED visits in 6 mos., readmits within 30 days, 2+ hospital admissions in 1 yr.) Patient gives permission to discuss discharge plans with: (name, relationship and number) : Patient and/or caregiver agree upon recommended discharge plan? : Yes Family / Caregiver's ability to cope with chronic illness: : b. Minimal (occasionally not dependable to meet pt's. needs, can meet pt's. basic ADL's) Functional screen assessment: : Unable to manage ADLs without immediate ongoing assistance Functional screen assessment: : New onset in weakness or paralysis Physical Status: : Compromised nutritional status Physical Status: : Compromised skin integrity Physical Status: : Indwelling urinary catheter Physical Status: : Mobility impaired Alternate discharge plan (if recommended plan not agreed upon by patient and/or caregiver): : [facility] Does the patient have the ability to pay for or attain post discharge needs / services? : Yes Family / Caregiver's ability to cope with chronic illness: : c. Inadequate (Enables pt. to make bad choices, cannot meet pt's. needs, difficult family dynamics) Partial Dependence, assistance required for: : Ambulation / Mobility Partial Dependence, assistance required for: : Bathing Partial Dependence, assistance required for: : Dressing Partial Dependence, assistance required for: : Eating Is there a likelihood that the patient will require additional services to return to the preadmission environment? : Yes Living Arrangements: : Home with Spouse/Significant Other Baseline cognitive status: : Intermittently confused / memory changes Results of this evaluation have been discussed with: : Patient Results of this evaluation have been discussed with: : Spouse Patient with capacity for self-care or can be cared for in same environment as prior to hospitalization? : No Living arrangements comments: : LIVES WITH SPOUSE, BUT UNABLE TO CARE FOR SELF AND UNABLE TO PROVIDE WHAT HE NEEDS RIGHT NOW Physical environment modification needed / anticipated for discharge: : Yes Preadmission facility can/cannot provide post hospital level of care needs: : Can - at higher level of care than preadmission Medication Management: : Evidence of High Risk Meds (check hospital policy) Medication Management: : Evidence of Polypharmacy (greater than 10 meds) Planned post hospital services available for patient? : Yes Pharmacy name(s): : [facility] Does Patient have transportation to get home and to follow-up medical appointments when discharged from the hospital? : Yes Planned post hospital services covered by insurance plan? : Yes Would patient like to participate in any Care Coordination programs (if applicable): : Not applicable Does the patient have electricity at home? : Yes Does the patient have running water in their house? : Yes Equipment in use: : Bedside Commode Equipment in use: : Shower Chair Equipment in use: : Walker - Rolling Equipment in use: : Wheelchair Other Equipment comments: : IV ABX AND SUPPLIES WITH [facility] Equipment agency name and contact information: : [facility] Mental health screen: : No mental health history Psychosocial status: : Adult with physical limitations Abuse/Neglect: : None Resources / Services in place: : Home health Contact information for resources in use: : [facility] IV D[facility] Re-evaluation QUESTION: ANSWER Would patient like to participate in any Care Coordination programs (if applicable): : Not applicable PATIENT: JUAN CHOUDHURY ENCOUNTER: [id number] MEDICAL RECORD#: [id number] ADMISSION DATE: 11/09/2020 DISCHARGE DATE: ATTENDING MD: ADITI ABRAMS : AGE: 75 MARITAL STATUS: M DC PLAN ID: [id number] FACILITY: [facility] PRINTED ON: 11/16/20 11:42 CT All edits/amendments must be made on the electronic document DICTATION DATE: 11/16/20 114 CRM SPECIALIST: DM 11/16/20 1142 RPT#: [id number] DC DATE: STATUS: ADM IN [facility] [address] [place] [address] END OF REPORT
--- NOTE | 2020-11-16 13:00 | NUR ---
MIDLINE S/L WITH REPORT CALLED TO RAMON BAXTER AT [facility]. PATIENT AND VERBALIZED UNDERSTANDING OF DISCHARGE INSTRUCTIONS WITH HOME MEDICATIONS GIIVEN TO AND AMBULANCE STAFF. STABLE AT TIME OF DISCHARGE.
[2020-11-16 13:21] VITALS: BP 130/61
--- NOTE | 2020-11-16 13:31 | MORECARE ---
CASE MANAGEMENT DISCHARGE SUMMARY PATIENT: JUAN CHOUDHURY UNIT: [id number] ADM DATE: 11/09/20 AGE: 75 : 47 SEX: M ROOM/BED: D.2207 AUTHOR: ILYA,DOC PHYSICIAN: REFERRING PHYSICIAN: ADITI CAPELLAN MD DATE OF SERVICE: 11/16/20 Case Management Discharge Planning Summary COMMENTS ENTERED DATE: 11/16/20 11:32 CT COMMENT TYPE: Discharge Planning REVIEWER: Lily Zavala PATIENT WILL BE DISCHARGING TO [facility] TODAY. DR BISWAS IS THE RECEIVING MD HE WILL BE GOING TO ROOM [facility] TODAY IMM SERVED TO AND EXPLAINED ALONG WITH HIS COLLINS FOR LTACH. CM TO FOLLOW AND ASSIST NEEDED ENTERED DATE: 11/13/20 14:25 CT COMMENT TYPE: Discharge Planning REVIEWER: Lily Zavala [facility] ENTERED DATE: 11/13/20 8:26 CT COMMENT TYPE: Discharge Planning REVIEWER: Lily Zavala late entry 11/12/20 @ 1330 CM met with patient to complete initial dc planning assessment. CM educated patient on the CM role and verbal consent given by patient to complete assessment. Patient lives at home with his where he is no longer independent with his care. Patient has recently been at inpatient rehab at [facility] and went home with home health and IV abx. He will need a higher level of care prior to discharging home. The would like to go to [facility] as their first choice and [place] as their second choice. COLLINS signed for the above. Adali with [facility] called and asked if he would be a candidate for LTACH due to his senior care abx treatment prior to him coming to them. I called [facility] and spoke with Meenu and she stated to fax over the referral. At home they currently hace a wheelchair, walker , bsc, shower chair, IV abx supplies and are set up with [facility] . CM will continue to follow and will assist as needed with dc plans/needs. ENTERED DATE: 11/10/20 15:35 CT COMMENT TYPE: Discharge Planning REVIEWER: Lily Bro with [facility] is here speaking with patient ENTERED DATE: 11/10/20 14:19 CT COMMENT TYPE: Discharge Planning REVIEWER: Lily Zavala Per [facility] inpatient rehab he will not be accepted down there. I have sent the referral to [facility] to see if he would be a candidate for them. DCP REVIEW SUMMARY ANTICIPATED D/C DATE: EXPECTED LOS : CASE STATUS: DCP Initiated INITIAL REVIEW: 11/09/2020 INITIAL REVIEWER: Lily Zavala FINAL DISCHARGE DISPOSITION: : FINAL REVIEWER: FINAL REVIEW DATE: DCP Focus Questions & Answers DCP Screen QUESTION: ANSWER High Risk Factors: : 3 or more ED visits within the last 60 days DCP Evaluation QUESTION: ANSWER Patient's current cognitive status: : Intermittently confused / memory changes Patient's ability to cope with chronic illness : c. Inadequate (3+ ED visits in 6 mos., readmits within 30 days, 2+ hospital admissions in 1 yr.) Patient gives permission to discuss discharge plans with: (name, relationship and number) : Patient and/or caregiver agree upon recommended discharge plan? : Yes Family / Caregiver's ability to cope with chronic illness: : b. Minimal (occasionally not dependable to meet pt's. needs, can meet pt's. basic ADL's) Functional screen assessment: : Unable to manage ADLs without immediate ongoing assistance Functional screen assessment: : New onset in weakness or paralysis Physical Status: : Compromised nutritional status Physical Status: : Compromised skin integrity Physical Status: : Indwelling urinary catheter Physical Status: : Mobility impaired Alternate discharge plan (if recommended plan not agreed upon by patient and/or caregiver): : [facility] Does the patient have the ability to pay for or attain post discharge needs / services? : Yes Family / Caregiver's ability to cope with chronic illness: : c. Inadequate (Enables pt. to make bad choices, cannot meet pt's. needs, difficult family dynamics) Partial Dependence, assistance required for: : Ambulation / Mobility Partial Dependence, assistance required for: : Bathing Partial Dependence, assistance required for: : Dressing Partial Dependence, assistance required for: : Eating Is there a likelihood that the patient will require additional services to return to the preadmission environment? : Yes Living Arrangements: : Home with Spouse/Significant Other Baseline cognitive status: : Intermittently confused / memory changes Results of this evaluation have been discussed with: : Patient Results of this evaluation have been discussed with: : Spouse Patient with capacity for self-care or can be cared for in same environment as prior to hospitalization? : No Living arrangements comments: : LIVES WITH SPOUSE, BUT UNABLE TO CARE FOR SELF AND UNABLE TO PROVIDE WHAT HE NEEDS RIGHT NOW Physical environment modification needed / anticipated for discharge: : Yes Preadmission facility can/cannot provide post hospital level of care needs: : Can - at higher level of care than preadmission Medication Management: : Evidence of High Risk Meds (check hospital policy) Medication Management: : Evidence of Polypharmacy (greater than 10 meds) Planned post hospital services available for patient? : Yes Pharmacy name(s): : [facility] [employer] [facility] Does Patient have transportation to get home and to follow-up medical appointments when discharged from the hospital? : Yes Planned post hospital services covered by insurance plan? : Yes Would patient like to participate in any Care Coordination programs (if applicable): : Not applicable Does the patient have electricity at home? : Yes Does the patient have running water in their house? : Yes Equipment in use: : Bedside Commode Equipment in use: : Shower Chair Equipment in use: : Walker - Rolling Equipment in use: : Wheelchair Other Equipment comments: : IV ABX AND SUPPLIES WITH [facility] Equipment agency name and contact information: : [facility] Mental health screen: : No mental health history Psychosocial status: : Adult with physical limitations Abuse/Neglect: : None Resources / Services in place: : Home health Contact information for resources in use: : [facility] IV DCP Re-evaluation QUESTION: ANSWER Would patient like to participate in any Care Coordination programs (if applicable): : Not applicable PATIENT: JUAN CHOUDHURY ENCOUNTER: [id number] MEDICAL RECORD#: [id number] ADMISSION DATE: 11/09/2020 DISCHARGE DATE: 11/16/2020 ATTENDING MD: ADITI ABRAMS : AGE: 75 MARITAL STATUS: M DC PLAN ID: [id number] FACILITY: [facility] PRINTED ON: 11/16/20 13:31 CT All edits/amendments must be made on the electronic document DICTATION DATE: 11/16/20 133 ACCOUNT SUPPORT ASSOCIATE: MILAN 11/16/201330 RPT#: [id number] DC DATE:11/16/20 STATUS: DIS IN [facility] [address] [place] [address] END OF REPORT
--- NOTE | 2020-11-16 15:34 | NUR ---
OT NOTE: PT COMPLETED SUPINE TO SIT WITH MAX-TOTAL A. PT COMPLETED EOB SITTING WITH MAX A. PT REQUIRED TOTAL A FOR LB HYGIENE. 3-033 AURA BASSETT COTA
--- NOTE | 2020-11-17 07:37 | MORECARE ---
CASE MANAGEMENT DISCHARGE SUMMARY PATIENT: JUAN CHOUDHURY UNIT: [id number] ADM DATE: 11/09/20 AGE: 75 : 47 SEX: M ROOM/BED: D.2207 AUTHOR: ILYA,DOC PHYSICIAN: REFERRING PHYSICIAN: ADITI CAPELLAN MD DATE OF SERVICE: 11/17/20 Case Management Discharge Planning Summary COMMENTS ENTERED DATE: 11/16/20 11:32 CT COMMENT TYPE: Discharge Planning REVIEWER: Lily Zavala PATIENT WILL BE DISCHARGING TO [facility] TODAY. DR BISWAS IS THE RECEIVING MD HE WILL BE GOING TO ROOM [facility] TODAY IMM SERVED TO AND EXPLAINED ALONG WITH HIS COLLINS FOR LTACH. CM TO FOLLOW AND ASSIST NEEDED ENTERED DATE: 11/13/20 14:25 CT COMMENT TYPE: Discharge Planning REVIEWER: Lily Zavala [facility] ENTERED DATE: 11/13/20 8:26 CT COMMENT TYPE: Discharge Planning REVIEWER: Lily Zavala late entry 11/12/20 @ 1330 CM met with patient to complete initial dc planning assessment. CM educated patient on the CM role and verbal consent given by patient to complete assessment. Patient lives at home with his where he is no longer independent with his care. Patient has recently been at inpatient rehab at [facility] and went home with home health and IV abx. He will need a higher level of care prior to discharging home. The would like to go to [facility] as their first choice and [place] as their second choice. COLLINS signed for the above. Adali with [facility] called and asked if he would be a candidate for LTACH due to his senior living abx treatment prior to him coming to them. I called [facility] and spoke with Meenu and she stated to fax over the referral. At home they currently hace a wheelchair, walker , bsc, shower chair, IV abx supplies and are set up with [facility] . CM will continue to follow and will assist as needed with dc plans/needs. ENTERED DATE: 11/10/20 15:35 CT COMMENT TYPE: Discharge Planning REVIEWER: Lily Bro with [facility] is here speaking with patient ENTERED DATE: 11/10/20 14:19 CT COMMENT TYPE: Discharge Planning REVIEWER: Lily Zavala Per [facility] inpatient rehab he will not be accepted down there. I have sent the referral to [facility] to see if he would be a candidate for them. DCP REVIEW SUMMARY ANTICIPATED D/C DATE: EXPECTED LOS : CASE STATUS: DCP Initiated INITIAL REVIEW: 11/09/2020 INITIAL REVIEWER: Lily Zavala FINAL DISCHARGE DISPOSITION: : FINAL REVIEWER: FINAL REVIEW DATE: DCP Focus Questions & Answers DCP Screen QUESTION: ANSWER High Risk Factors: : 3 or more ED visits within the last 60 days DCP Evaluation QUESTION: ANSWER Patient gives permission to discuss discharge plans with: (name, relationship and number) : Patient's current cognitive status: : Intermittently confused / memory changes Family / Caregiver's ability to cope with chronic illness: : b. Minimal (occasionally not dependable to meet pt's. needs, can meet pt's. basic ADL's) Patient and/or caregiver agree upon recommended discharge plan? : Yes Patient's ability to cope with chronic illness : c. Inadequate (3+ ED visits in 6 mos., readmits within 30 days, 2+ hospital admissions in 1 yr.) Physical Status: : Compromised nutritional status Physical Status: : Compromised skin integrity Physical Status: : Indwelling urinary catheter Physical Status: : Mobility impaired Family / Caregiver's ability to cope with chronic illness: : c. Inadequate (Enables pt. to make bad choices, cannot meet pt's. needs, difficult family dynamics) Functional screen assessment: : Unable to manage ADLs without immediate ongoing assistance Functional screen assessment: : New onset in weakness or paralysis Does the patient have the ability to pay for or attain post discharge needs / services? : Yes Alternate discharge plan (if recommended plan not agreed upon by patient and/or caregiver): : [facility] Partial Dependence, assistance required for: : Ambulation / Mobility Partial Dependence, assistance required for: : Bathing Partial Dependence, assistance required for: : Dressing Partial Dependence, assistance required for: : Eating Living Arrangements: : Home with Spouse/Significant Other Is there a likelihood that the patient will require additional services to return to the preadmission environment? : Yes Baseline cognitive status: : Intermittently confused / memory changes Living arrangements comments: : LIVES WITH SPOUSE, BUT UNABLE TO CARE FOR SELF AND UNABLE TO PROVIDE WHAT HE NEEDS RIGHT NOW Patient with capacity for self-care or can be cared for in same environment as prior to hospitalization? : No Results of this evaluation have been discussed with: : Patient Results of this evaluation have been discussed with: : Spouse Preadmission facility can/cannot provide post hospital level of care needs: : Can - at higher level of care than preadmission Physical environment modification needed / anticipated for discharge: : Yes Medication Management: : Evidence of High Risk Meds (check hospital policy) Medication Management: : Evidence of Polypharmacy (greater than 10 meds) Pharmacy name(s): : [facility] [employer] [facility] Planned post hospital services available for patient? : Yes Does Patient have transportation to get home and to follow-up medical appointments when discharged from the hospital? : Yes Planned post hospital services covered by insurance plan? : Yes Would patient like to participate in any Care Coordination programs (if applicable): : Not applicable Does the patient have electricity at home? : Yes Does the patient have running water in their house? : Yes Equipment in use: : Bedside Commode Equipment in use: : Shower Chair Equipment in use: : Walker - Rolling Equipment in use: : Wheelchair Other Equipment comments: : IV ABX AND SUPPLIES WITH [facility] Equipment agency name and contact information: : [facility] Mental health screen: : No mental health history Psychosocial status: : Adult with physical limitations Abuse/Neglect: : None Resources / Services in place: : Home health Contact information for resources in use: : [facility] IV DCP Re-evaluation QUESTION: ANSWER Would patient like to participate in any Care Coordination programs (if applicable): : Not applicable PATIENT: JUAN CHOUDHURY ENCOUNTER: [id number] MEDICAL RECORD#: [id number] ADMISSION DATE: 11/09/2020 DISCHARGE DATE: 11/16/2020 ATTENDING MD: ADITI ABRAMS : AGE: 75 MARITAL STATUS: M DC PLAN ID: [id number] FACILITY: [facility] PRINTED ON: 11/17/20 7:36 CT All edits/amendments must be made on the electronic document DICTATION DATE: 11/17/20735 PROGRAM MANAGEMENT INTERN: MILAN 11/17/20735 RPT#: [id number] DC DATE:11/16/20 STATUS: DIS IN [facility] [address] [place] [address] END OF REPORT
--- NOTE | 2020-11-17 14:16 | MORECARE ---
CASE MANAGEMENT DISCHARGE SUMMARY PATIENT: JUAN CHOUDHURY UNIT: [id number] ADM DATE: 11/09/20 AGE: 75 : 49 SEX: M ROOM/BED: D.2207 AUTHOR: ILYA,DOC PHYSICIAN: REFERRING PHYSICIAN: ADITI CAPELLAN MD DATE OF SERVICE: 11/17/20 Case Management Discharge Planning Summary COMMENTS ENTERED DATE: 11/16/20 11:32 CT COMMENT TYPE: Discharge Planning REVIEWER: Lily Zavala PATIENT WILL BE DISCHARGING TO [facility] TODAY. DR BISWAS IS THE RECEIVING MD HE WILL BE GOING TO ROOM 315 [facility] TODAY IMM SERVED TO AND EXPLAINED ALONG WITH HIS [facility] FOR [facility]. CM TO FOLLOW AND ASSIST NEEDED ENTERED DATE: 11/13/20 14:25 CT COMMENT TYPE: Discharge Planning REVIEWER: Lily Zavala [facility]OULD [facility] THERE ENTERED DATE: 11/13/20 8:26 CT COMMENT TYPE: Discharge Planning REVIEWER: Lily Zavala late entry 11/12/20 @ 1330 CM met with patient to complete initial dc planning assessment. CM educated patient on the CM role and verbal consent given by patient to complete assessment. Patient lives at home with his where he is no longer independent with his care. Patient has recently been at inpatient rehab at [facility] and went home with home health and IV abx. He will need a higher level of care prior to discharging home. The would like to go to [facility] as their first choice and [facility] as their second choice. COLLINS signed for the above. Adali with [facility] called and asked if he would be a candidate for [facility] due to his jail abx treatment prior to him coming to them. I called [facility] and spoke with Meenu and she stated to fax over the referral. At home they currently hace a wheelchair, walker , bsc, shower chair, IV abx supplies and are set up with [facility] . CM will continue to follow and will assist as needed with dc plans/needs. ENTERED DATE: 11/10/20 15:35 CT COMMENT TYPE: Discharge Planning REVIEWER: Lily Bro with [facility] is here speaking with patient ENTERED DATE: 11/10/20 14:19 CT COMMENT TYPE: Discharge Planning REVIEWER: Lily Zavala Per [facility] inpatient rehab he will not be accepted down there. I have sent the referral to [facility] to see if he would be a candidate for them. DCP REVIEW SUMMARY ANTICIPATED D/C DATE: EXPECTED LOS : CASE STATUS: DCP Initiated INITIAL REVIEW: 11/09/2020 INITIAL REVIEWER: Lily Zavala FINAL DISCHARGE DISPOSITION: : FINAL REVIEWER: FINAL REVIEW DATE: DCP Focus Questions & Answers DCP Screen QUESTION: ANSWER High Risk Factors: : 3 or more ED visits within the last 60 days DCP Evaluation QUESTION: ANSWER Patient gives permission to discuss discharge plans with: (name, relationship and number) : Patient's current cognitive status: : Intermittently confused / memory changes Family / Caregiver's ability to cope with chronic illness: : b. Minimal (occasionally not dependable to meet pt's. needs, can meet pt's. basic ADL's) Patient and/or caregiver agree upon recommended discharge plan? : Yes Patient's ability to cope with chronic illness : c. Inadequate (3+ ED visits in 6 mos., readmits within 30 days, 2+ hospital admissions in 1 yr.) Physical Status: : Compromised nutritional status Physical Status: : Compromised skin integrity Physical Status: : Indwelling urinary catheter Physical Status: : Mobility impaired Family / Caregiver's ability to cope with chronic illness: : c. Inadequate (Enables pt. to make bad choices, cannot meet pt's. needs, difficult family dynamics) Functional screen assessment: : Unable to manage ADLs without immediate ongoing assistance Functional screen assessment: : New onset in weakness or paralysis Does the patient have the ability to pay for or attain post discharge needs / services? : Yes Alternate discharge plan (if recommended plan not agreed upon by patient and/or caregiver): : [facility] Partial Dependence, assistance required for: : Ambulation / Mobility Partial Dependence, assistance required for: : Bathing Partial Dependence, assistance required for: : Dressing Partial Dependence, assistance required for: : Eating Living Arrangements: : Home with Spouse/Significant Other Is there a likelihood that the patient will require additional services to return to the preadmission environment? : Yes Baseline cognitive status: : Intermittently confused / memory changes Living arrangements comments: : LIVES WITH SPOUSE, BUT UNABLE TO CARE FOR SELF AND UNABLE TO PROVIDE WHAT HE NEEDS RIGHT NOW Patient with capacity for self-care or can be cared for in same environment as prior to hospitalization? : No Results of this evaluation have been discussed with: : Patient Results of this evaluation have been discussed with: : Spouse Preadmission facility can/cannot provide post hospital level of care needs: : Can - at higher level of care than preadmission Physical environment modification needed / anticipated for discharge: : Yes Medication Management: : Evidence of High Risk Meds (check hospital policy) Medication Management: : Evidence of Polypharmacy (greater than 10 meds) Pharmacy name(s): : [facility] Planned post hospital services available for patient? : Yes Does Patient have transportation to get home and to follow-up medical appointments when discharged from the hospital? : Yes Planned post hospital services covered by insurance plan? : Yes Would patient like to participate in any Care Coordination programs (if applicable): : Not applicable Does the patient have electricity at home? : Yes Does the patient have running water in their house? : Yes Equipment in use: : Bedside Commode Equipment in use: : Shower Chair Equipment in use: : Walker - Rolling Equipment in use: : Wheelchair Other Equipment comments: : IV ABX AND SUPPLIES WITH [facility] Equipment agency name and contact information: : [facility] Mental health screen: : No mental health history Psychosocial status: : Adult with physical limitations Abuse/Neglect: : None Resources / Services in place: : Home health Contact information for resources in use: : [facility] DCP Re-evaluation QUESTION: ANSWER Would patient like to participate in any Care Coordination programs (if applicable): : Not applicable PATIENT: JUAN CHOUDHURY ENCOUNTER: [id number] MEDICAL RECORD#: [id number] ADMISSION DATE: 11/09/2020 DISCHARGE DATE: 11/16/2020 ATTENDING MD: ADITI ABRAMS : AGE: 75 MARITAL STATUS: M DC PLAN ID: [id number] FACILITY: [facility] PRINTED ON: 11/17/20 14:16 CT All edits/amendments must be made on the electronic document DICTATION DATE: 11/17/201415 HIDE SALTER: MILAN 11/17/201415 RPT#: [id number] DC DATE:11/16/20 STATUS: DIS IN [facility] [address] [place] [address] END OF REPORT
== END 2020-11-16 13:00 | disposition short-term general hospital (02) | DRG 92 ==
LOC: D.ER 09:31 → D.MS 16:20
PROVIDERS: Family Medicine; ADMIT Family Medicine; ATTEND Family Medicine
DX: G72.89 Other specified myopathies (principal); M62.82 Rhabdomyolysis; Z68.1 Body mass index [BMI] 19.9 or less, adult; M46.26 Osteomyelitis of vertebra, lumbar region; E86.0 Dehydration; G20 Parkinson's disease; D64.9 Anemia, unspecified; R63.6 Underweight; R53.1 Weakness; R74.01 Elevation of levels of liver transaminase levels; S01.119A Laceration without foreign body of unspecified eyelid and periocular area, initial encounter; W19.XXXA Unspecified fall, initial encounter